=== PATIENT | female | born 1985 | race Caucasian/White ===

== ENCOUNTER → 2017-05-13 | Outpatient (CLI) | payer BC, OTHER ==
[~2017-05-13] MED LIST: ACHD5005 PO; CEPH-507 PO; FERR325T18 PO; FLUO20CA42 PO; IBUP-1773 PO; OMEP20TA7 PO; RANI150T15 PO
--- NOTE | 2017-05-13 16:32 | Diagnostic Imaging Report ---
EXAMINATION: Pelvic ultrasound. INDICATION: Pelvic pain. FINDINGS: There are no prior studies available for comparison. The uterus is nongravid and not enlarged measuring 7.8 x 6.0 x 5.2 cm. The endometrial lining is thickened measuring 16 mm (5 mm or less). This finding is nonspecific. Correlation with the patient's menstrual cycle will be recommended. There is no focal mass involving the uterus to suggest a fibroid. Both ovaries are identified. Each ovary contains a few subcentimeter follicles. There is good blood flow to each ovary and there is no sign of torsion. There is a small amount of nonspecific free fluid in the pelvis. There is no solid pelvic mass or abscess visualized. IMPRESSION: 1. There is a small amount of nonspecific free fluid. There is no acute pelvic abnormality noted otherwise. 2. The endometrial lining is thickened but this finding is nonspecific. Correlation with the patient's menstrual cycle will be recommended. Dictated by: Dictated on workstation # [id number]
== END ==
LOC: RAD 14:19
PROVIDERS: ATTEND Nurse Practitioner Family
DX: E28.2 Polycystic ovarian syndrome (principal); R93.8 Abnormal findings on diagnostic imaging of other specified body structures
CPT/HCPCS: 76830; 76856

== ENCOUNTER → 2018-01-07 | Outpatient (CLI) | payer BC ==
[~2018-01-07] MED LIST changes: -RANI150T15 PO; +RANI150T46 PO
--- NOTE | 2018-01-07 12:03 | Diagnostic Imaging Report ---
INDICATION: anatomical survey assessment. TECHNIQUE: Multiple real-time grayscale images were obtained over the gravid uterus. COMPARISON: None. FINDINGS: There is a single viable intrauterine , currently in a variable presentation. The placenta is along the anterior aspect and without evidence for previa. There is lower limits of amniotic fluid, borderline oligohydramnios with an index at 5.7 cm. The visualized anatomical structures including the bladder, stomach, intracranial structures, four-chamber heart, and three-vessel cord appearing unremarkable. It is noted the kidneys, spine, and cord insertion site however are not well assessed at this time. Biometrical measurements are as follows: Biparietal 4.53 cm, age 19 weeks 5 days. Head circumference 17.46 cm, age 20 weeks 0 days. Abdominal circumference 14.25 cm, age 19 weeks 5 days. Femur length 3.43 cm, age 20 weeks 6 days. Sonographic estimate age: 20 weeks 1 days. Sonographic estimated date of delivery: 05/26/18. Estimated Weight: 334 gm (+/- 49 gm). LMP percentile: 52%. heart rate: 142 beats per minute. number: 1 of 1. Maternal adnexa not visualized. IMPRESSION: 1. Single viable intrauterine , currently in a variable orientation. Sonographic estimated age 20 weeks 1 day for sonographically estimated date of delivery of May 26, 2018. 2. The kidneys, spine, and cord insertion site were unable to be well visualized at this time. 3. There is presence of borderline oligohydramnios with a low amount of amniotic fluid present. 4. Short-term followup imaging is recommended for reassessment. Dictated by: Dictated on workstation # [id number]
== END ==
LOC: RAD 10:02
PROVIDERS: ATTEND Obstetrics & Gynecology
DX: Z36.89 Encounter for other specified antenatal screening (principal); Z3A.20 20 weeks gestation of pregnancy
CPT/HCPCS: 76805

== ENCOUNTER 2018-05-26 02:12 | Inpatient (IN) | payer BC ==
[2018-05-26] VITALS (38 sets, daily range): BP systolic 98–151; BP diastolic 48–88
[~2018-05-26] VITALS: Ht 162.6 cm; Wt 104.0 kg
[2018-05-26] MEDS ORDERED: MINERAL OIL CONCENTRATE 99.9% 15 ML UDC TOP PRN (02:30)
[2018-05-26] MEDS: D5 LR IV SOLUTION 1,000 ML IV SCH ×2 (02:50→10:45)
[2018-05-26 02:55] LABS: BILIRUBIN,URINE NEGATIVE (NEGATIVE); GLUCOSE, URINE (UA) NEGATIVE (NEGATIVE); KETONES,URINE 4+ (NEGATIVE); LEUKOCYTE ESTERASE ,URINE NEGATIVE (NEGATIVE); NITRITE,URINE NEGATIVE (NEGATIVE); PH,URINE 6 (5-9); PROTEIN,URINE NEGATIVE (NEGATIVE); UROBILINOGEN,URINE NORMAL (NORMAL)
[2018-05-26 03:01] LABS: CLARITY,URINE SLIGHTLY CLOUDY; COLOR,URINE YELLOW; RBC,URINE RARE /HPF; WBC,URINE RARE /HPF
[2018-05-26 03:02] LABS: BACTERIA,URINE TRACE /HPF
[2018-05-26 03:05] LABS: BASOPHILS % (AUTO) 0 % (0-10); EOSINOPHILS % (AUTO) 0 % (0-10); HEMATOCRIT 28 % (35-52); LYMPHOCYTES # (AUTO) 2.2 X 10^3 (1.0-4.0); LYMPHOCYTES % (AUTO) 23 % (12-44); MEAN CORPUSCULAR HEMOGLOBIN 27 PG (25-34); MEAN CORPUSCULAR HGB CONC 32 G/DL (32-36); MEAN CORPUSCULAR VOLUME 82 FL (80-99); MEAN PLATELET VOLUME 9.8 FL (7.4-10.4); MONOCYTES # (AUTO) 0.7 X 10^3 (0.0-1.0); MONOCYTES % (AUTO) 8 % (0-12); NEUTROPHILS # (AUTO) 6.5 X 10^3 (1.8-7.8); NEUTROPHILS % (AUTO) 68 % (42-75); PLATELET COUNT 340 10^3/uL (130-400); RED CELL DISTRIBUTION WIDTH 15.2 % (10.0-14.5); WHITE BLOOD COUNT 9.5 10^3/uL (4.3-11.0)
[2018-05-26] MEDS ORDERED: CATHETER FLUSH 10 ML SYR IV SCH ×2 (06:00→14:00)
--- NOTE | 2018-05-26 07:10 | NUR ---
Report rec'd from previous shift. RN reports pt arrived to floor around 0215 c/o ctx.
--- NOTE | 2018-05-26 07:20 | History & Physical-OB ---
OB - Chief Complaint & HPI Date/Time Date of Admission: Date of Admission: May 26, 2018 at 02:33 Date seen by a Provider: May 26, 2018 Time Seen by a Provider: 07:20 Chief Complaint/History OB-Reason for Admission/Chief: Induction of Labor Hx : 2 Hx Para: 1 Expected Date of Delivery: May 27, 2018 Gestational Age in Weeks: 39 Gestational Age in Days: 1 Admission Nurse Assessment Rev: Yes History of Labs A pos Antibody neg RI RPR NR HBsAg NR HIV NR GC neg GBS neg Allergies and Home Medications Allergies Coded Allergies: amoxicillin (Verified Allergy, Mild, rash , 05/08/15) In childhood, has not had since. clavulanic acid (Verified Allergy, Mild, rash , 05/08/15) In childhood, has not had since. Home Medications Cephalexin 500 Mg Capsule, 500 MG PO QID, (Reported) Fluoxetine HCl 20 Mg Capsule, 20 MG PO DAILY, (Reported) Omeprazole 20 Mg Tablet.dr, 20 MG PO BID Prescribed by: REJI LAMBERT on 09/06/15 3093 Patient Home Medication List Home Medication List Reviewed: Yes OB - History Hx of Present Care: Yes Ultrasounds: Normal mid trimester US Obstetrical Complications: None Medical Complications: None Obstetrical History Hx : 2 Hx Para: 1 Hx Total # of Abortions (Spona: 0 Delivery History Hx Blood Disorders: No Adverse Rxn to Tranfusion: No Patient Past Medical History PMHx: PCOS Social History/Family History HIV/AIDS: No Recent Infectious Disease Expo: No Sexually Transmitted Disease: No Alcohol Use: Denies Use Recreational Drug Use: No Immunizations Hepatitis A: No Hepatitis B: Yes Tetanus Booster (TDap): Less than 5yrs OB - Admission Exam Physical Exam Vitals: Vital Signs 05/26/18 03:00 Temp 98.4 Pulse 108 Resp 18 B/P (MAP) 130/76 (94) HEENT: NCAT Heart: Rhythm Normal Lungs: Clear Abdomen: Gravid Extremities: Normal Reflexes: Normal Cervical Dilatation: 4cm Effacement: 75% Station: -1 Membranes: Intact Heart Rate: 130's Accelerations: Accelerations Present Decelerations: No Decelerations Short Term Variability: Present Chinese Medicine Practitioner Variability: Average (6-25) Contractions on Admission: 6-10 Minutes Apart Intensity: Moderate Cormier Scoring Tool (Modified) Dilation (cm): 3-4cm (2) Effacement (%): 51-79% (2) Descent/Station: -1,0 (2) Cervix Consistency: Soft (2) Cervix Position: Middle/Mid-Position (1) Add 1 point for: Each previous vaginal delivery (1) Cormier Score: 10 Labs Laboratory Tests Test 05/26/18 02:35 05/26/18 02:45 Range/Units Urine Color YELLOW Urine Clarity SLIGHTLY CLOUDY Urine pH 6 5-9 Urine Specific [place] 1.015 L 1.016-1.022 Urine Protein NEGATIVE NEGATIVE Urine Glucose (UA) NEGATIVE NEGATIVE Urine Ketones 4+ H NEGATIVE Urine Nitrite NEGATIVE NEGATIVE Urine Bilirubin NEGATIVE NEGATIVE Urine Urobilinogen NORMAL NORMAL MG/DL Urine Leukocyte Esterase NEGATIVE NEGATIVE Urine RBC (Auto) 1+ H NEGATIVE Urine RBC RARE /HPF Urine WBC RARE /HPF Urine Squamous Epithelial Cells 10-25 H /HPF Urine Crystals NONE /LPF Urine Bacteria TRACE /HPF Urine Casts NONE /LPF Urine Mucus SMALL H /LPF Urine Culture Indicated NO White Blood Count 9.5 4.3-11.0 10^3/uL Red Blood Count 3.38 L 4.35-5.85 10^6/uL Hemoglobin 9.0 L 11.5-16.0 G/DL Hematocrit 28 L 35-52 % Mean Corpuscular Volume 82 80-99 FL Mean Corpuscular Hemoglobin 27 25-34 PG Mean Corpuscular Hemoglobin Concent 32 32-36 G/DL Red Cell Distribution Width 15.2 H 10.0-14.5 % Platelet Count 340 130-400 10^3/uL Mean Platelet Volume 9.8 7.4-10.4 FL Neutrophils (%) (Auto) 68 42-75 % Lymphocytes (%) (Auto) 23 12-44 % Monocytes (%) (Auto) 8 0-12 % Eosinophils (%) (Auto) 0 0-10 % Basophils (%) (Auto) 0 0-10 % Neutrophils # (Auto) 6.5 1.8-7.8 X 10^3 Lymphocytes # (Auto) 2.2 1.0-4.0 X 10^3 Monocytes # (Auto) 0.7 0.0-1.0 X 10^3 Eosinophils # (Auto) 0.0 0.0-0.3 10^3/uL Basophils # (Auto) 0.0 0.0-0.1 10^3/uL OB - Assessment/Plan/Diagnosis Assessment Assessment: induction of labor Admission Dx 32 yo @ 39.6 Induction/augmentation of latent early labor GBS neg BMI 39 Admission Status: Inpatient Order (span 2 midnights) Reason for Inpatient Admission: Induction of labor Term Plan Plan: Induction Induction Method: EPI WU DO May 26, 2018 07:19
[2018-05-26] MEDS ORDERED: FLU QUADRIvalent (5+ YOA) 2018-2019 (AFLURIA) 0.5 ML IM ONE (07:30)
[2018-05-26] MEDS ORDERED: OXYTOCIN/NORMAL SALINE 500 ML IV SCH ×2 (09:32→13:52)
[2018-05-26] MEDS ORDERED: SUFENTA 0.6MCG/ML BUPIVA 0.125 100 ML ONE (10:06)
[2018-05-26] MEDS ORDERED: LIDOCAINE PF 2% 5 ML (XYLOCAINE) VIAL ONE (10:25)
[2018-05-26] MEDS ORDERED: fentaNYL INJECTION 100 MCG/2 ML AMP ONE (10:25)
[2018-05-26] MEDS ORDERED: BUPIVACAINE 0.25% 30 ML (SENSORCAINE) VIAL ONE (10:25)
--- NOTE | 2018-05-26 10:27 | NUR ---
Dr. Haas here for epidural placement. Procedure explained, consent reviewed and signed by anesthesia. Questions answered to patient's satisfaction. Time out taken to verify correct patient/procedure. Patient up to side of bed, assisted into sitting position. Betadine prep done x3 and sterile drape applied. Local done, see anesthesia record. Test dose given, see anesthesia record for drug and dosage. Epidural catheter secured in place. Epidural placement complete. Assisted back into bed, monitors adjusted. Epidural dosed, see anesthesia record. Epidural of Sufenta/Bupvicaine @12 cc/hr stated per pump. Patient tolerated procedure well.
[2018-05-26] MEDS ORDERED: LIDOCAINE/EPI 2% 1:200,00 (XYLOCAINE) 10 ML VIAL ONE (12:02)
[2018-05-26] MEDS ORDERED: IBUPROFEN 600 MG (MOTRIN) TAB PO ONE (13:57)
[2018-05-26] MEDS ORDERED: BENZOCAINE/MENTHOL (DERMOPLAST) 56 ML CAN TP PRN (14:00)
[2018-05-26] MEDS ORDERED: WITCH HAZEL(TUCKS) 40 EA JAR TOP PRN (14:00)
[2018-05-26] MEDS: IBUPROFEN 600 MG (MOTRIN) TAB PO SCH ×2 (14:00→20:19)
[2018-05-26] MEDS ORDERED: LACTATED RINGERS 1,000 ML IV ONE (14:14)
[2018-05-26] MEDS ORDERED: ONDANSETRON 4 MG/2 ML (SDV) Z0FRAN IV PRN (14:15)
[2018-05-26] MEDS ORDERED: NALOXONE 0.4 MG/ML 1 ML (NARCAN) VIAL IV PRN (14:15)
[2018-05-26] MEDS ORDERED: diphenhydrAMINE 50 MG/ML INJ (BENADRYL) IV PRN (14:15)
[2018-05-26] MEDS ORDERED: EPIDURAL (SUFENTA 0.6MCG/ML BUPIVA 0.125%) 100 ML BAG EPI SCH (14:15)
[2018-05-26] MEDS ORDERED: CATHETER FLUSH 10 ML SYR IV PRN (14:15)
--- NOTE | 2018-05-26 15:00 | NUR ---
Pt assisted to standing position, ambulates to bathroom without difficulty. +void. Pericare performed. Fresh vpad and underwear applied. New gown on. Pt assisted to wheelchair. Taken to room 312 via wheelchair. Pt and oriented to room and call light. packet explained. Pt questions answered to pt satisfaction. Denies further needs at this time.
--- NOTE | 2018-05-26 16:46 | OB Labor & Delivery Record ---
L&D History Date of Service Date of Service: May 26, 2018 History Expected Date of Delivery: May 27, 2018 Gestational Age in Weeks: 39 Hx : 2 Hx Para: 1 Complications Events: Routine care Operative Indications (Cesarea: N/A-Vaginal Delivery Intrapartal Events: None L&D Stage1 Stage One Onset of Labor - Date: May 26, 2018 Monitors and Tracing Monitor Mode: None Heart Rate: 130 Monitor Accelerations: Uniform Monitor Decelerations: Early Station: -2 Alf Variability: Average (6-10) Short Term Variability: Present Presentation: Vertex Vital Signs VS - Last 72 Hours, by Label 05/26/18 05/26/18 05/26/18 05/26/18 03:00 07:20 08:20 08:50 Temp 98.4 97.5 97.9 Pulse 108 102 88 96 Resp 18 18 18 18 B/P (MAP) 130/76 (94) 125/75 (92) 120/72 (88) 132/70 (90) 05/26/18 05/26/18 05/26/18 05/26/18 09:20 09:50 10:20 10:35 Pulse 86 93 105 101 Resp 18 18 18 18 B/P (MAP) 133/67 (89) 124/64 (84) 125/85 (98) 122/64 (83) Pulse Ox 100 05/26/18 05/26/18 05/26/18 05/26/18 10:45 10:49 10:53 10:56 Temp 97.5 Pulse 101 103 95 102 Resp 18 18 18 18 B/P (MAP) 151/88 (109) 117/56 (76) 124/65 (84) 110/63 (79) Pulse Ox 99 100 99 96 05/26/18 05/26/18 05/26/18 05/26/18 10:59 11:05 11:08 11:11 Pulse 101 99 90 91 Resp 18 18 18 18 B/P (MAP) 115/60 (78) 120/62 (81) 121/66 (84) 113/66 (82) Pulse Ox 100 99 99 100 05/26/18 05/26/18 05/26/18 05/26/18 11:14 11:20 11:23 11:26 Pulse 93 84 103 78 Resp 18 18 18 18 B/P (MAP) 111/61 (78) 114/59 (77) 106/55 (72) 112/59 (76) Pulse Ox 100 100 100 100 05/26/18 05/26/18 05/26/18 05/26/18 11:29 11:32 11:37 11:42 Pulse 85 94 91 92 Resp 18 18 18 18 B/P (MAP) 124/73 (90) 124/68 (86) 137/83 (101) 136/74 (94) Pulse Ox 100 05/26/18 05/26/18 05/26/18 05/26/18 11:47 11:52 12:35 12:38 Pulse 89 84 100 112 Resp 18 18 18 18 B/P (MAP) 134/69 (90) 131/70 (90) 123/66 (85) 118/64 (82) 05/26/18 05/26/18 05/26/18 05/26/18 12:53 13:08 13:23 13:38 Pulse 100 102 106 100 Resp 18 18 18 18 B/P (MAP) 121/57 (78) 120/60 (80) 123/66 (85) 124/64 (84) 05/26/18 05/26/18 05/26/18 05/26/18 13:53 14:08 14:23 14:38 Temp 98.9 Pulse 101 100 100 109 Resp 18 18 18 18 B/P (MAP) 118/60 (79) 118/62 (80) 114/57 (76) 113/65 (81) Rupture of Membranes Spontaneous Ruture of Membrane: No Amniotic Membrane Rupture Time: 0725 Amniotic Membrane Fluid Desc.: Clear Vaginal Bleeding Description: Normal Show (AROM and Pitocin started, patient progressed to complete and +2 with low dose 4mu pitocin.) Induction/Anesthesia Epidural Cath Placement - Time: 1043 L&D Stage2 Stage Two Stage II Date: May 26, 2018 Monitors and Tracing Monitor Mode: None Heart Rate: 130 Monitor Accelerations: Uniform Monitor Decelerations: Variable [employer] Shop Supervisor Variability: Average (6-10) Short Term Variability: Present Position: Right Occiput Anterior Presentation: Vertex Cord Descript/Complications Cord Vessel Description: 3 Vessels Delivery Type Infant Delivery Method: Spontaneous Vaginal Anterior Shoulder: Right Episiotomy/Perineal Laceration [place](s)/Extensions: Yes Episiotomy Description: Midline (midline 1st degree repaired using 3-0 rapide vicryl suture) Condition of Infant Delivery 1 minute Comment: 8 5 minute Comment: 9 Notes Live female weight 7lbs 11 oz Condition of Infant Condition of : Living Exam: No Observed Abnormalities Resuscitation Resuscitation: N/A - Spontaneous Resp L&D Stage3 Stage Three Stage III Date: May 26, 2018 Pictocin Pitocin Administration Comment: 30 mu wide open at delivery of placenta Placenta Delivery Placenta Delivery: Spontaneous Delivery Summary Summary Estimated blood loss (mL): 300 Attending at delivery: Epi James DO Condition of Delivery Examined: Cervix Examined, Uterus Explored Post Hemorrhage: No Condition of Mother stable Condition of Infant (s) stable EPI JAMES DO May 26, 2018 16:46
[2018-05-26] MEDS: HYDROcodone/APAP 5 MG/325 MG (LORTAB) TAB PO PRN ×2 (17:48→23:35)
[2018-05-26] MEDS: DOCUSATE SODIUM 100 MG (COLACE) CAP PO SCH (20:19)
[2018-05-27] MEDS: IBUPROFEN 600 MG (MOTRIN) TAB PO SCH ×3 (02:40→14:59)
[2018-05-27 02:44] VITALS: BP 141/82
[2018-05-27 05:51] VITALS: BP 124/66
[2018-05-27 05:59] LABS: BASOPHILS % (AUTO) 0 % (0-10); EOSINOPHILS # (AUTO) 0.1 10^3/uL (0.0-0.3); EOSINOPHILS % (AUTO) 1 % (0-10); HEMATOCRIT 26 % (35-52); HEMOGLOBIN 8.2 G/DL (11.5-16.0); LYMPHOCYTES # (AUTO) 2.4 X 10^3 (1.0-4.0); LYMPHOCYTES % (AUTO) 20 % (12-44); MEAN CORPUSCULAR HEMOGLOBIN 27 PG (25-34); MEAN CORPUSCULAR HGB CONC 32 G/DL (32-36); MEAN CORPUSCULAR VOLUME 84 FL (80-99); MEAN PLATELET VOLUME 10.9 FL (7.4-10.4); MONOCYTES # (AUTO) 1.1 X 10^3 (0.0-1.0); MONOCYTES % (AUTO) 9 % (0-12); NEUTROPHILS # (AUTO) 8.5 X 10^3 (1.8-7.8); NEUTROPHILS % (AUTO) 70 % (42-75); PLATELET COUNT 263 10^3/uL (130-400); RED CELL DISTRIBUTION WIDTH 15.6 % (10.0-14.5); WHITE BLOOD COUNT 12.1 10^3/uL (4.3-11.0)
[2018-05-27] MEDS ORDERED: FERROUS SULF 325 MG (IRON) TAB PO SCH (07:00)
[2018-05-27] MEDS ORDERED: PRENATAL VITAMIN 1 EA TAB PO SCH (07:00)
[2018-05-27 08:27] VITALS: BP 112/62
[2018-05-27] MEDS: DOCUSATE SODIUM 100 MG (COLACE) CAP PO SCH (08:28)
--- NOTE | 2018-05-27 09:30 | NUR ---
Dr Cash here to see pt, plan for D/C this afternoon.
--- NOTE | 2018-05-27 09:37 | Postpartum Progress Note ---
Note Note Day # 1 Subjective: Patient is without complaints. Ambulating, voiding. Tolerating a regular diet without nausea or vomiting. Normal lochia. Pain is well controlled with oral pain medications. Objective: Physical Exam: General - Alert and oriented, no apparent distress Abdomen - Soft, appropriately tender to palpation, non-distended, fundus firm at umbilicus Extremities - no edema, negative Beti's bilaterally Assessment: PPD 1 NVD Acute blood loss anemia superimposed on anemia of Plan: Routine care. Encourage breast feeding. Encourage ambulation. Ferrous sulfate supplementation. Plan for discharge today Vitals - Labs Vital Signs - I&O Vital Signs Date Time Temp Pulse Resp B/P (MAP) Pulse Ox O2 Delivery O2 Flow Rate FiO2 05/27/18 08:27 102 16 112/62 (79) 98 Room Air 05/27/18 05:51 97.9 95 20 124/66 (85) 96 Room Air 05/27/18 02:44 97.2 82 18 141/82 (101) 97 Room Air 05/26/18 22:21 99.0 98 18 98/48 (65) 97 05/26/18 17:50 98.4 97 18 122/62 (82) 99 Room Air 05/26/18 14:38 109 18 113/65 (81) 05/26/18 14:23 100 18 114/57 (76) 05/26/18 14:08 100 18 118/62 (80) 05/26/18 13:53 98.9 101 18 118/60 (79) 05/26/18 13:38 100 18 124/64 (84) 05/26/18 13:23 106 18 123/66 (85) 05/26/18 13:08 102 18 120/60 (80) 05/26/18 12:53 100 18 121/57 (78) 05/26/18 12:38 112 18 118/64 (82) 05/26/18 12:35 100 18 123/66 (85) 05/26/18 11:52 84 18 131/70 (90) 05/26/18 11:47 89 18 134/69 (90) 05/26/18 11:42 92 18 136/74 (94) 05/26/18 11:37 91 18 137/83 (101) 05/26/18 11:32 94 18 124/68 (86) 05/26/18 11:29 85 18 124/73 (90) 100 05/26/18 11:26 78 18 112/59 (76) 100 05/26/18 11:23 103 18 106/55 (72) 100 05/26/18 11:20 84 18 114/59 (77) 100 05/26/18 11:14 93 18 111/61 (78) 100 05/26/18 11:11 91 18 113/66 (82) 100 05/26/18 11:08 90 18 121/66 (84) 99 05/26/18 11:05 99 18 120/62 (81) 99 05/26/18 10:59 101 18 115/60 (78) 100 05/26/18 10:56 102 18 110/63 (79) 96 05/26/18 10:53 95 18 124/65 (84) 99 05/26/18 10:49 97.5 103 18 117/56 (76) 100 05/26/18 10:45 101 18 151/88 (109) 99 05/26/18 10:35 101 18 122/64 (83) 100 05/26/18 10:20 105 18 125/85 (98) 05/26/18 09:50 93 18 124/64 (84) I & O 05/27/18 07:00 Intake Total 2300 ml Balance 2300 ml Labs Laboratory Tests 05/27/18 05:50: White Blood Count 12.1H, Red Blood Count 3.09L, Hemoglobin 8.2L, Hematocrit 26L , Mean Corpuscular Volume 84, Mean Corpuscular Hemoglobin 27, Mean Corpuscular Hemoglobin Concent 32, Red Cell Distribution Width 15.6H, Platelet Count 263, Mean Platelet Volume 10.9H, Neutrophils (%) (Auto) 70, Lymphocytes (%) (Auto) 20 , Monocytes (%) (Auto) 9, Eosinophils (%) (Auto) 1, Basophils (%) (Auto) 0, Neutrophils # (Auto) 8.5H, Lymphocytes # (Auto) 2.4, Monocytes # (Auto) 1.1H, Eosinophils # (Auto) 0.1, Basophils # (Auto) 0.0 EPI JAMES DO May 27, 2018 09:36
--- NOTE | 2018-05-27 09:37 | Discharge Inst-Women's Service ---
Discharge Inst-Women's Serv Depart Medication/Instructions New, Converted or Re-Newed RX: RX on Chart Final Diagnosis PPD 1 NVD Consults/Follow Up Additional Follow Up: Yes Orders/Referrals Dr. James in 6 weeks Activity Activity: Activity as Tolerated Driving Instructions: No Driving for 1 Week NO SMOKING: NO SMOKING Nothing Inside Vagina: No Douching, No Stuart, No Tampons Diet Discharge Diet: No Restrictions Symptoms to Report to : Bleeding Excessive, Pain Increased, Fever Over 101 Degrees F, Vaginal Bleeding Increase, Questions/Concerns For Any Problems or Questions: Contact Your Physician EPI JAMES DO May 27, 2018 09:37
[2018-05-27] MEDS ORDERED: FERR325T18 PO (09:39)
[2018-05-27] MEDS ORDERED: IBUP-844 PO (09:39)
[2018-05-27] MEDS ORDERED: Benzocaine/Menthol TP (09:39)
[2018-05-27] MEDS ORDERED: ACHD5005 PO (09:39)
[2018-05-27] MEDS ORDERED: DOCU100C37 PO (09:39)
--- NOTE | 2018-05-27 10:11 | Anesthesia-Regional Post-Op ---
Regional Patient Condition Mental Status: Alert, Oriented x3 Circulation: Same as Pre-Op Headache: Absent Sensation: Full Recovery Motor Block: Absent Post Op Complications Complications None Follow Up Care/Instructions Patient Instructions None needed. Anesthesia/Patient Condition Patient is doing well, no complaints, stable vital signs, no apparent adverse anesthesia problems. No complications reported per nursing. BORIS MASTERS CRNA May 27, 2018 10:11
--- NOTE | 2018-05-27 10:30 | NUR ---
To room to check on pt. Pt emotional d/t status in ns. Pt frustrated that she was unaware of situation and that nsy RN didn't introduce herself first thing this AM. Pt concerned that hasn't eaten in 5-6 hours and wanting to breastfeed. Spoke with pt at length and apologized for frustration. Pt feeling better at this time. This RN accompanied pt to [facility] to see and feed infant.
[2018-05-27 12:07] VITALS: BP 123/74
--- NOTE | 2018-05-27 14:20 | NUR ---
TO ROOM TO GIVE MOTRIN, PRESCRIPTIONS TO PT. PT IN NSY TO SEE AT THIS TIME. PRESCRIPTIONS GIVEN TO S.O. TO FILL. ASKED S.O. TO CALL RN WHEN PT BACK IN ROOM.
--- NOTE | 2018-05-27 17:25 | NUR ---
Discharge instructions explained to pt with copy provided to pt. Pt notified of need to call for follow up appt. Pt verbalizes understanding of instructions and signs to verify. Pt denies further questions or concerns at this time. Pt educated on boarder parent status. Pt to remain in room 312 as boarder mom.
== END 2018-05-27 17:25 | disposition home or self-care (01) | DRG 806 ==
LOC: WSo 02:12 → LDRP 02:12 → WSo 02:33 → LDRP 15:00
PROVIDERS: ADMIT Obstetrics & Gynecology; ATTEND Obstetrics & Gynecology
PROC: 10E0XZZ Delivery of Products of Conception, External Approach (ICD-10-PCS; principal; 2018-05-26)
PROC: 0W8NXZZ Division of Female Perineum, External Approach (ICD-10-PCS; 2018-05-26)
PROC: 0HQ9XZZ Repair Perineum Skin, External Approach (ICD-10-PCS; 2018-05-26)
DX: O99.02 Anemia complicating childbirth (principal); O90.81 Anemia of the puerperium; D62 Acute posthemorrhagic anemia; O70.0 First degree perineal laceration during delivery; Z37.0 Single live birth; Z3A.39 39 weeks gestation of pregnancy
CPT/HCPCS: 36415; 81000; 85025; 86850; 86900; 86901; 99212

== ENCOUNTER → 2018-10-28 | Outpatient (CLI) | payer BC ==
[~2018-10-28] MED LIST changes: +Benzocaine/Menthol TP; +DOCU100C37 PO; +IBUP-844 PO; +RANI-613 PO; -RANI150T46 PO
--- NOTE | 2018-10-28 09:18 | Diagnostic Imaging Report ---
PROCEDURE: US Gallbladder. TECHNIQUE: Multiple real-time grayscale images were obtained over the right upper quadrant in various projections. INDICATION: Abdominal pain. FINDINGS: The previous gallbladder ultrasound exam performed on 08/09/2015 fail to show any sign of cholelithiasis or of an acute abnormality. On this study, there is still no evidence for cholelithiasis or acute cholecystitis and the common bile duct is not dilated. The liver does not appear to be enlarged. There is no focal mass involving the liver and the biliary tree is not abnormally dilated. Spectral and color flow imaging of the portal vein shows that the vein is patent. The right kidney is unremarkable. The pancreas was not well visualized. IMPRESSION: 1. There is still no evidence for an acute abnormality of the right upper quadrant. 2. If clinical concern regarding an underlying abnormality of the gallbladder persists and further imaging is desired, then a nuclear medicine hepatobiliary scan would be recommended. Dictated by: Dictated on workstation # [id number]
== END ==
LOC: RAD 07:57
PROVIDERS: ATTEND Nurse Practitioner Family
DX: R10.11 Right upper quadrant pain (principal)
CPT/HCPCS: 76705

== ENCOUNTER 2019-08-20 17:10 | Emergency (ER) | payer BC ==
[~2019-08-20] VITALS: Ht 164 cm; Wt 58.0 kg
[2019-08-20] MEDS ORDERED: KETOROLAC 60 MG/2 ML VIAL IM ONE (17:30)
--- NOTE | 2019-08-20 17:32 | ED Lower Extremity ---
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 No previos inj. Hx of PCOS, LMP 4 weeks ago. Hasn't taken anything for pain. No other injuries. Allergies and Home Medications Allergies Coded Allergies: amoxicillin (Verified Allergy, Mild, rash , 05/08/15) In childhood, has not had since. clavulanic acid (Verified Allergy, Mild, rash , 05/08/15) In childhood, has not had since. Home Medications Cephalexin 500 Mg Capsule, 500 MG PO QID, (Reported) Docusate Sodium 100 Mg Capsule, 100 MG PO BID PRN for CONSTIPATION-1ST LINE Prescribed by: EPI JAMES on 05/27/18938 Ferrous Sulfate 325 Mg Tablet, 325 MG PO DAILY@0700 Prescribed by: EPI JAMES on 05/27/18938 Fluoxetine HCl 20 Mg Capsule, 20 MG PO DAILY, (Reported) Hydrocodone Bit/Acetaminophen 1 Tab Tab, 1 TAB PO Q4H PRN for PAIN-MODERATE Prescribed by: EPI JAMES on 05/27/18938 Ibuprofen 600 Mg Tablet, 600 MG PO Q6H Prescribed by: EPI JAMES on 05/27/18938 Omeprazole 20 Mg Tablet.dr, 20 MG PO BID Prescribed by: RJEI LAMBERT on 09/06/15 1545 [Benzocaine/Menthol] 56 ML AEROSOL, 56 ML TP UD PRN for PAIN- SEE INSTRUCTIONS EXTERNAL USE ONLY Prescribed by: EPI JAMES on 05/27/18938 Patient Home Medication List Home Medication List Reviewed: Yes Review of Systems Constitutional: No chills, No diaphoresis EENTM: No ear discharge, No ear pain Respiratory: No cough, No short of breath Cardiovascular: No chest pain, No edema Gastrointestinal: No abdominal pain, No nausea, No vomiting Genitourinary: No discharge, No dysuria Musculoskeletal: see HPI; No back pain; joint pain All Other Systems Reviewed Negative Unless Noted: Yes Past Outwolu-Kxrszw-Nhzvoc Hx Patient Social History Alcohol Use: Denies Use Recreational Drug Use: No Smoking Status: Never a Smoker Recent Foreign Travel: No Contact w/Someone Who Travel: No Immunizations Up To Date Tetanus Booster (TDap): Less than 5yrs PED Vaccines UTD: Yes Seasonal Allergies Seasonal Allergies: No Past Medical History Reproductive Disorders: Yes Female Reproductive Disorders: Polycystic Ovarian Dis Sexually Transmitted Disease: No HIV/AIDS: No Anxiety Adverse Reaction/Blood Tranf: No Family Medical History FH: pancreatic cancer 19 FATHER, , Onset:55 Cancer, Other Conditions/Hx Physical Exam Vital Signs Vital Signs - First Documented 08/20/19 17:20 Temp 37.1 Pulse 100 Resp 20 B/P (MAP) 108/75 (86) Pulse Ox 99 O2 Delivery Room Air Capillary Refill : Height, Weight, BMI Height: 5'4.00" Weight: 229lbs. 4.0oz. 103.076751ew; 39.4 BMI Method:Stated General Appearance: WD/WN, moderate distress (tearful) HEENT: PERRL/EOMI, TMs normal, pharynx normal Neck: non-tender, full range of motion, supple, normal inspection Cardiovascular: normal peripheral pulses, regular rate, rhythm Respiratory: lungs clear, normal breath sounds, no respiratory distress, no accessory muscle use Gastrointestinal: normal bowel sounds, non tender, soft, no organomegaly Hips: bilateral hip non-tender, bilateral hip normal inspection, bilateral hip normal range of motion Legs: bilateral leg non-tender, bilateral leg normal inspection, bilateral leg normal range of motion Knees: bilateral knee non-tender, bilateral knee normal inspection, bilateral knee normal range of motion Ankles: right ankle non-tender, right ankle normal inspection; bilateral ankle normal range of motion; right ankle no evidence of injury; left ankle bone tenderness (Lateral posterior malleolus) Feet: bilateral foot non-tender, bilateral foot normal inspection, bilateral foot normal range of motion, bilateral foot no evidence of injury Neurologic/Tendon: normal sensation, normal motor functions, normal tendon functions, responds to pain, no evidence tendon injury 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, no motor/sensory deficits, alert, normal mood/affect, oriented x 3 Skin: normal color, warm/dry Progress/Results/Core Measures Results/Orders My Orders Orders - ARTEM MEEK Tibia/Fibula, Left, 2 Views (08/20/19 17:23) Ankle, Left, 3 Views (08/20/19 17:23) Ketorolac Injection (Toradol Injection) (08/20/19 17:30) Urine Bedside (08/20/19 17:23) Medications Given in ED Current Medications Medications Dose Ordered Sig/[place] Route Start Time Stop Time Status Last Admin Dose Admin Ketorolac Tromethamine 60 mg ONCE ONCE IM 08/20/19 17:30 08/20/19 17:31 DC 08/20/19 17:20 60 MG Vital Signs/I&O 08/20/19 17:20 Temp 37.1 Pulse 100 Resp 20 B/P (MAP) 108/75 (86) Pulse Ox 99 O2 Delivery Room Air Progress Progress Note #1: Time: 17:33 Progress Note Neg HCG. Toradol for pain. XR left ankle and tib fib. Progress Note #2: Time: 18:05 Progress Note Pain significantly better. Declined script for Opiates. Posterior splint. Cap refill brisk, sensation intact. Good DP pulse after posterior splint placed. Diagnostic Imaging Diagonstic Imaging: Xray Plain Films/CT/US/NM/MRI: ankle (l) Comments closed, comminuted, nondisplaced fracture of the distal fibula. [facility], [place] NAME: MO [facility]ELONGO [facility] REC#: [id number] PT STATUS: REG ER : 1985 PHYSICIAN: ARTEM MEEK MD ADMIT DATE: 08/20/19/ER Draft Date of Exam:08/20/19 ANKLE, LEFT, 3 VIEWS INDICATION: Injury, tripped on dog. EXAMINATION: Left ankle from 08/20/2019. FINDINGS: 3 views of the ankle. Comminuted distal fibular fracture is noted. Alignment is fairly well maintained. There may be mild widening of the medial ankle mortise, but remaining osseous structures appear to be intact. No dislocations. IMPRESSION: 1. Comminuted distal fibular fracture with questionable widening at the ankle mortise. Dictated on workstation # [id number] Dict: 08/20/19 1749 Trans: 08/20/[address] [place] [id number] Interpreted by: EZEQUIEL SARGENT MD Electronically signed by: Reviewed: Reviewed by Me Diagonstic Imaging: Xray Plain Films/CT/US/NM/MRI: leg Comments closed, comminuted, nondisplaced fracture of the distal fibula. NAME: MO [facility]ONTELON[facility] REC#: [id number] PT STATUS: REG ER : 1985 PHYSICIAN: ARTEM MEEK MD ADMIT DATE: 08/20/19/ER Draft Date of Exam:08/20/19 TIBIA/FIBULA, LEFT, 2 VIEWS INDICATION: Trauma, tripped dog. EXAMINATION: Left tibia and fibula dated 08/20/2019. FINDINGS: 4 views of the tibia and fibula. Comminuted distal fibular fracture is noted. The tibia is intact. Proximal tibia and fibula unremarkable. IMPRESSION: 1. Distal fibular fracture. Dictated on workstation # [id number] Dict: 08/20/19 1750 Trans: 08/20/19 1801 [id number] Interpreted by: EZEQUIEL SARGENT MD Electronically signed by: Reviewed: Reviewed by Me Departure Impression Primary Impression: Fall Qualified Codes: W19.XXXA - Unspecified fall, initial encounter Additional Impression: Closed fibular fracture Qualified Codes: S82.832A - Other fracture of upper and lower end of left fibula, initial encounter for closed fracture Disposition: 01 HOME, SELF-CARE Condition: Improved Departure-Patient Inst. Decision time for Depature: 18:09 Referrals: ELLEN SUTTON MD (PCP/Family) Primary Care Physician EPI LEMUS MD Patient Instructions: Fibula Fracture (DC) Add. Discharge Instructions: Wear the splint except to bathe. Call an orthopedist and F/U in 1 week. Rest, Ice, Elevate and keep the elastic bandages on. Loosen bandages and elevate the foot for inc swelling or tingling. All discharge instructions reviewed with patient and/or family. Voiced understanding. Work/School Note: Work Release Form Date Seen in the Emergency Department: Aug 20, 2019 Return to Work: Aug 21, 2019 Restrictions: Need Release from Doctor Other Restrictions Listed Below: Non weight bearing. Use Crutches. Copy Copies To 1: EPI LEMUS MD, TITUS J Aug 20, 2019 17:32
--- OUTSIDE RECORDS SUMMARY | 2019-08-20 17:37 | XMS REPORT | Clinical Summary ---
Author Author [facility] Organization [facility] Address Unknown Phone Unavailable Care Team Providers Care Terrazzo Roller Name Role Phone Matthew Cash DO PCP Source Comments Some departments are not documenting in the electronic medical record. If you d o not see the information that you expected, contact Release of Information in [facility] [employer] Information Management department at [phone] for further assistan ce in locating additional records.[facility] Allergies Not on File Medications Not on file Active Problems Not on file Social History Date Tobacco Use Types Packs/Day Years Used Never Assessed Sex Assigned at Date Recorded Not on file Industry Job Start Date Occupation Not on file Not on file Not on file Travel End Travel History Travel Start No recent travel history available. Last Filed Vital Signs Not on file Plan of Treatment Health Maintenance Due Date Last Done Comments HIV SCREENING 2001 DTAP/TDAP VACCINES (1 - 2004 Tdap) HEPATITIS C SCREENING 2004 PHYSICAL (COMPREHENSIVE) 2004 EXAM CERVICAL CANCER SCREENING 07/27/2007 INFLUENZA VACCINE 11/30/2019 Results Not on filefrom Last 3 Months Insurance Type Payer Benefit Subscriber ID Effective Phone Address Plan / Dates Group PPO [employer] xxxxxxxxxxxx [id number] BLUE OUT resent OF STATE Advance Directives Patient District Court Justice Explanation Type Date Recorded Advance Directive/DPOA
--- OUTSIDE RECORDS SUMMARY | 2019-08-20 17:38 | XMS REPORT | CCD ---
Author Author Mervin Munroe Organization Lina Berkowitz MD, [facility] Address [address] [place] [address] Phone Care Team Providers Care Employee Representative Name Role Phone PP Unavailable CCM Unavailable Summary Purpose Interface Exchange Insurance Providers Payer name Policy type / Coverage type Covered democrat ID Effective Begin Date Effective End Date [facility] Insurance [id number] Un known Family history Mother Diagnosis Age At Onset Osteoporosis Unknown Arthritis Unknown Father Diagnosis Age At Onset Cancer Unknown Alcoholism Unknown Social History Social History Element Codes Description Effective Dates Marital status Unknown M james clinton 10/29/2016 Number of children Unknown 1 10/29/2016 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 10/29/[address]: 566256332 Never smoker 10/29/2016 Alcohol history Unknown occasionally drinks alcohol 10/29/2016 Allergies, Adverse Reactions, Alerts Substance Reaction Codes Entered Date Inactivated Date Status AUGMENTIN RxNorm: 490084 10/29/2016 No Inactive Date Active Past Medical History Illness Codes Condition Status Onset Date Resolved Date Anemia, unspecified ICD- 9: 285.9 ICD-10: D64.9 Active 10/20/2018 Unknown Gastro-esophageal re flux disease without esophagitis ICD-9: 530.81 ICD-10: K21.9 Active 10/29/2016 Unknown Impaired fasting glu cose ICD-9: 790.21 ICD-10: R73.01 Active 10/18/2018 Unknown Right upper quadrant pain ICD-9: 789.01 ICD-10: R10.11 Active 10/18/2018 Unknown Pelvic and perineal pain ICD-9: 625.9 ICD-10: R10.2 Active 05/10/2017 Unknown Polycystic ovarian s yndrome ICD-9: 256.4 ICD-10: E28.2 Active 10/29/2016 Unknown Palpitations ICD-9: 785.1 ICD-10: R00.2 Active 10/29/2016 Unknown Problems Condition Codes Effectiv e Dates Condition Status Anemia, unspecified ICD- 9: 285.9 ICD-10: D64.9 10/20/2018 Active Gastro-esophageal re flux disease without esophagitis ICD-9: 530.81 ICD-10: K21.9 10/29/2016 Active Impaired fasting glu cose ICD-9: 790.21 ICD-10: R73.01 10/18/2018 Active Right upper quadrant pain ICD-9: 789.01 ICD-10: R10.11 10/18/2018 Active Pelvic and perineal pain ICD-9: 625.9 ICD-10: R10.2 05/10/2017 Active Polycystic ovarian s yndrome ICD-9: 256.4 ICD-10: E28.2 10/29/2016 Active Palpitations ICD-9: 785.1 ICD-10: R00.2 10/29/2016 Active Medications Medication Codes Instruc tions Start Date Stop Date Sta tus Fill Instructions vit #[id number] [id number] oral RxNorm: oral No Start Date Active omeprazole 20 mg cap megan,delayed release RxNorm: 378417 1 Capsule(s) PO daily No Start Date 05/09/2017 Inactive metformin 500 mg tablet RxNorm: 203212 1 Tablet(s) PO BID No Start Date 05/09/2017 Inactive Medication Administered No Medication Administered data Immunizations No Immunization data Assessments Condition Codes Effectiv e Dates Anemia, unspecified ICD-10: D64.9 ICD-9: 285.9 10/20/2018 Right upper quadrant pain ICD-10: R1 0.11 ICD-9: 789.01 10/18/2018 Impaired fasting glucose ICD-10: R73 .01 ICD-9: 790.21 10/18/2018 Pelvic and perineal pain ICD-10: R10 .2 ICD-9: 625.9 05/10/2017 Polycystic ovarian syndrome ICD-10: E28.2 ICD-9: 256.4 05/10/2017 Palpitations ICD-10: R00.2 ICD-9: 785.1 10/29/2016 Gastro-esophageal reflux disease without esophagitis ICD-10: K21.9 ICD-9: 530.81 10/29/2016 Reason For Visit Reason For Visit Effective Dates Notes abdominal pain 10/18/2018 abdominal pain 05/10/2017 palpitations 10/29/2016 Results Observation Observation Code Item Item Code Result Date %Hba1C Qxv598 % HbA1c 99233-7 5.9 % 10/19/2018 %Hba1C Khq589 Gluc Ave 123 mg/dL 10/19/2018 Comp Metabolic Mkh798 NA 140 mEq/L 10/18/2018 Comp Metabolic Wkb128 K 4.3 mEq/L 10/18/2018 Comp Metabolic Yib489 CL 105 mEq/L 10/18/2018 Comp Metabolic Nnn722 CO2 29.0 mEq/L 10/18/2018 Comp Metabolic Iwt258 AN ION GAP 10 10/18/2018 Comp Metabolic Uup098 GL UCOSE 89 mg/dL 10/18/2018 Comp Metabolic Mzr479 Cr eat 0.9 mg/dL 10/18/2018 Comp Metabolic Ixr898 eG FR 78 ml/min/1.73m2 10/18 Comp Metabolic Zal812 BUN 13 mg/dL 10/18/2018 Comp Metabolic Ish791 B/ C Ratio 14.6 Ratio 10/18/2018 Comp Metabolic Avx192 CA LCIUM 9.2 mg/dL 10/18/2018 Comp Metabolic Wbo999 AL K PHOS 64 U/L 10/18/2018 Comp Metabolic Fff593 T(SGOT) 15 U/L 10/18/2018 Comp Metabolic Lfd241 AL T(SGPT) 18 U/L 10/18/2018 Comp Metabolic Lcv712 BI LI T 0.2 mg/dL 10/18/2018 Comp Metabolic Vll568 AL BUMIN 4.2 g/dL 10/18/2018 Comp Metabolic Cyn444 TP RO 6.6 g/dL 10/18/2018 Comp Metabolic Hky349 GL OB 2.4 g/dL 10/18/2018 Comp Metabolic Hue812 A/ G Ratio 1.7 Ratio 10/18/2018 Comp Metabolic Top059 Os mo 279 mOsmo 10/18/2018 Tsh Ord6 TSH (3rd IS) 1.52 uIU/mL 10/18/2018 Cbc With Differential Ord2 WBC 5.64 K/ul 10/18/2018 Cbc With Differential Ord2 RBC 4.39 M/ul 10/18/2018 Cbc With Differential Ord2 HGB 11.4 g/dl 10/18/2018 Cbc With Differential Ord2 HCT 36.6 % 10/18/2018 Cbc With Differential Ord2 Neut% 58.5 % 10/18/2018 Cbc With Differential Ord2 MCV 83.4 fl 10/18/2018 Cbc With Differential Ord2 Lymph% 27.7 % 10/18/2018 Cbc With Differential Ord2 MCH 26.0 pg 10/18/2018 Cbc With Differential Ord2 [place]% 12.4 % 10/18/2018 Cbc With Differential Ord2 MCHC 31.1 pg 10/18/2018 Cbc With Differential Ord2 Eos% 1.2 % 10/18/2018 Cbc With Differential Ord2 PLT 333 K/ul 10/18/2018 Cbc With Differential Ord2 Baso% 0.2 % 10/18/2018 Cbc With Differential Ord2 RDW 15.6 % 10/18/2018 Cbc With Differential Ord2 Neut ABS# 3.30 K/ul 10/18/2018 Cbc With Differential Ord2 Lymph ABS# 1.56 K/ul 10/18/2018 Cbc With Differential Ord2 [place] ABS# 0.7 K/ul 10/18/2018 Cbc With Differential Ord2 Eos ABS# 0.1 K/ul 10/18/2018 Cbc With Differential Ord2 Baso ABS# 0.0 K/ul 10/18/2018 Lipid Ord30 CHOL 171 mg/dL 10/18/2018 Lipid Ord30 HDL 70.0 mg/dl 10/18/2018 Lipid Ord30 TRIG 62 mg/dL 10/18/2018 Lipid Ord30 LDL 89 mg/dL 10/18/2018 Lipid Ord30 C/HDL 2.4 Ratio 10/18/2018 Comp Metabolic Hrv736 NA 137 mEq/L 05/10/2017 Comp Metabolic Hgc720 K 4.0 mEq/L 05/10/2017 Comp Metabolic Kux391 CL 103 mEq/L 05/10/2017 Comp Metabolic Aoj929 CO2 26.0 mEq/L 05/10/2017 Comp Metabolic Dbu955 AN ION GAP 12 05/10/2017 Comp Metabolic Uzj186 GL UCOSE 92 mg/dL 05/10/2017 Comp Metabolic Uot130 Cr eat 0.9 mg/dL 05/10/2017 Comp Metabolic Bgo222 eG FR 82 ml/min/1.73m2 05/10 Comp Metabolic Gfo643 BUN 19 mg/dL 05/10/2017 Comp Metabolic Jht281 B/ C Ratio 22.1 Ratio 05/10/2017 Comp Metabolic Rxw085 CA LCIUM 9.2 mg/dL 05/10/2017 Comp Metabolic Csd637 AL K PHOS 80 U/L 05/10/2017 Comp Metabolic Ggh811 T(SGOT) 19 U/L 05/10/2017 Comp Metabolic Cps818 AL T(SGPT) 21 U/L 05/10/2017 Comp Metabolic Ejb591 BI LI T 0.2 mg/dL 05/10/2017 Comp Metabolic Hmt724 AL BUMIN 4.4 g/dL 05/10/2017 Comp Metabolic Tph308 TP RO 6.8 g/dL 05/10/2017 Comp Metabolic Wax557 GL OB 2.5 g/dL 05/10/2017 Comp Metabolic Tbl648 A/ G Ratio 1.8 Ratio 05/10/2017 Comp Metabolic Ntt237 Os mo 276 mOsmo 05/10/2017 Cbc With Differential Ord2 WBC 6.62 K/ul 05/10/2017 Cbc With Differential Ord2 RBC 4.52 M/ul 05/10/2017 Cbc With Differential Ord2 HGB 12.2 g/dl 05/10/2017 Cbc With Differential Ord2 HCT 37.7 % 05/10/2017 Cbc With Differential Ord2 Neut% 62.6 % 05/10/2017 Cbc With Differential Ord2 MCV 83.4 fl 05/10/2017 Cbc With Differential Ord2 Lymph% 25.7 % 05/10/2017 Cbc With Differential Ord2 MCH 27.0 pg 05/10/2017 Cbc With Differential Ord2 [place]% 10.6 % 05/10/2017 Cbc With Differential Ord2 MCHC 32.4 pg 05/10/2017 Cbc With Differential Ord2 Eos% 0.8 % 05/10/2017 Cbc With Differential Ord2 PLT 295 K/ul 05/10/2017 Cbc With Differential Ord2 Baso% 0.3 % 05/10/2017 Cbc With Differential Ord2 RDW 15.4 % 05/10/2017 Cbc With Differential Ord2 Neut ABS# 4.15 K/ul 05/10/2017 Cbc With Differential Ord2 Lymph ABS# 1.70 K/ul 05/10/2017 Cbc With Differential Ord2 [place] ABS# 0.7 K/ul 05/10/2017 Cbc With Differential Ord2 Eos ABS# 0.1 K/ul 05/10/2017 Cbc With Differential Ord2 Baso ABS# 0.0 K/ul 05/10/2017 Lipid Ord30 CHOL 219 mg/dL 05/10/2017 Lipid Ord30 HDL 78.0 mg/dl 05/10/2017 Lipid Ord30 TRIG 61 mg/dL 05/10/2017 Lipid Ord30 LDL 129 mg/dL 05/10/2017 Lipid Ord30 C/HDL 2.8 Ratio 05/10/2017 Tsh Ord6 TSH (3rd IS) 2.17 uIU/mL 05/10/2017 %Hba1C Com280 % HbA1c 04204-7 5.8 % 05/10/2017 %Hba1C Xse433 Gluc Ave 120 mg/dL 05/10/2017 Review of Systems System Result Effective Dates Constitutional recent illness 10/18/2018 Constitutional No anorexia 10/18/2018 Constitutional No night sweats 10/18/2018 Constitutional No chills 10/18/2018 Constitutional No fatigue 10/18/2018 Constitutional No diaphoresis 10/18/2018 Constitutional No fever 10/18/2018 Constitutional No insomnia 10/18/2018 Constitutional No malaise 10/18/2018 Constitutional weight loss 10/18/2018 Eyes No eye discharge Eyes No eye erythema Ears/Nose/Throat/Neck No dizziness 10/18/2018 Ears/Nose/Throat/Neck No headache 10/18/2018 Cardiovascular No chest pain/pressure 10/18/2018 Respiratory No cough Gastrointestinal abdominal pain 10/18/2018 Gastrointestinal No constipation 10/18/2018 Gastrointestinal diarrhea 10/18/2018 Gastrointestinal nausea 10/18/2018 Gastrointestinal vomiting 10/18/2018 Genitourinary/Nephrology No dysuria 10/18/2018 Musculoskeletal No joint complaint 10/18/2018 Dermatologic No rash Neurologic No alteration of consciousness 10/18/2018 Genitourinary/Nephrology No dysuria 05/10/2017 Genitourinary/Nephrology No menstrua l irregularity 05/10/2017 Genitourinary/Nephrology No Pap smea r abnormality 05/10/2017 Genitourinary/Nephrology pelvic pain 05/10/2017 Genitourinary/Nephrology No vaginal discharge 05/10/2017 Genitourinary/Nephrology No urinary retention/hesitancy 05/10/2017 Gastrointestinal No abdominal pain 05/10/2017 Gastrointestinal constipation 05/10/2017 Gastrointestinal No diarrhea 05/10/2017 Constitutional No recent illness 05/10/2017 Constitutional No anorexia 05/10/2017 Constitutional No night sweats 05/10/2017 Constitutional No chills 05/10/2017 Constitutional No diaphoresis 05/10/2017 Constitutional No fatigue 05/10/2017 Constitutional No fever 05/10/2017 Constitutional No insomnia 05/10/2017 Constitutional No malaise 05/10/2017 Eyes No eye discharge Eyes No eye erythema 01/2018 Ears/Nose/Throat/Neck No dizziness 05/10/2017 Ears/Nose/Throat/Neck No headache 05/10/2017 Cardiovascular No chest pain/pressure 05/10/2017 Respiratory No cough 01/2018 Musculoskeletal No joint complaint 05/10/2017 Dermatologic No rash 01/2018 Neurologic No alteration of consciousness 05/10/2017 Constitutional No recent illness 10/29/2016 Constitutional No night sweats 10/29/2016 Constitutional No anorexia 10/29/2016 Constitutional No chills 10/29/2016 Constitutional No diaphoresis 10/29/2016 Constitutional No fatigue 10/29/2016 Constitutional No fever 10/29/2016 Constitutional No insomnia 10/29/2016 Constitutional No malaise 10/29/2016 Constitutional No weight loss 10/29/2016 Constitutional weight gain 10/29/2016 Eyes No eye discharge Eyes No eye erythema Ears/Nose/Throat/Neck No headache 10/29/2016 Ears/Nose/Throat/Neck No dizziness 10/29/2016 Ears/Nose/Throat/Neck nasal allergies 10/29/2016 Cardiovascular No chest pain/pressure 10/29/2016 Cardiovascular No dyspnea 10/29/2016 Cardiovascular palpitations 10/29/2016 Respiratory No cough Respiratory No productive sputum 10/29/2016 Gastrointestinal No constipation 10/29/2016 Gastrointestinal No diarrhea 10/29/2016 Gastrointestinal gastroesophageal reflux 10/29/2016 Genitourinary/Nephrology No dysuria 10/29/2016 Genitourinary/Nephrology menstrual i rregularity 10/29/2016 Musculoskeletal No joint complaint 10/29/2016 Dermatologic No rash Dermatologic No sores Neurologic No alteration of consciousness 10/29/2016 Psychiatric No anxiety 0 10/29/2016 Psychiatric No depression 10/29/2016 Endocrine No polyuria Endocrine No polydipsia 10/29/2016 Endocrine No hair loss 0 10/29/2016 Hematologic/Lymphatic No abnormal bl eeding and bruising 10/29/2016 Physical Exam Exam Name System Name It em Name Status Result Effective Dates Notes Full Exam - General 1994 Constitutional general appearance Overall: well developed 10/18/2018 None Full Exam - General 1994 Constitutional general appearance Overall: in no acute distress 10/18/2018 None Full Exam - General 1994 Constitutional general appearance Overall: well nourished 10/18/2018 None Full Exam - General 1994 Eyes conjunctiva/eyelids Overall: conjunctiva clear 10/18/2018 None Full Exam - General 1994 Eyes pupils and irises Overall: pupils equal, round, reactive to light and accomodation 10/18/2018 None Full Exam - General 1994 Ears/Nose/Throat otoscopic exam Overall: external auditory canals clear 10/18/2018 None Full Exam - General 1994 Ears/Nose/Throat otoscopic exam Overall: tympanic membranes clear 10/18/2018 None Full Exam - General 1994 Ears/Nose/Throat oral cavity/pharynx/larynx Overall: oral mucosa clear 10/18/2018 None Full Exam - General 1994 Neck thyroid Overall: normal size None Full Exam - General 1994 Respiratory auscultation Overall: breath sounds clear bilaterally 10/18/2018 None Full Exam - General 1994 Respiratory respiratory effort/rhythm Overall: no retractions 10/18/2018 None Full Exam - General 1994 Respiratory respiratory effort/rhythm Overall: normal rate 10/18/2018 None Full Exam - General 1994 Cardiovascular extremities Overall: no clubbing 10/18/2018 None Full Exam - General 1994 Cardiovascular auscultation of heart Overall: regular rate 10/18/2018 None Full Exam - General 1994 Cardiovascular auscultation of heart Overall: normal heart sounds 10/18/2018 None Full Exam - General 1994 Cardiovascular auscultation of heart Overall: no murmurs 10/18/2018 None Full Exam - General 1994 Lymphatic neck nodes Overall: anterior cervical chain benign 10/18/2018 None Full Exam - General 1994 Lymphatic neck nodes Overall: posterior cervical chain benign 10/18/2018 None Full Exam - General 1994 Musculoskeletal gait and station Overall: normal gait 10/18/2018 None Full Exam - General 1994 Musculoskeletal gait and station Overall: normal station 10/18/2018 None Full Exam - General 1994 Integument inspection of skin Overall: few scattered moles, no gross abnormalities 10/18/2018 None Full Exam - General 1994 Neurologic cranial nerves Overall: crainial nerves 2 - 12 grossly intact 10/18/2018 None Full Exam - General 1994 Psychiatric orientation/consciousness Overall: oriented to person, place and time 10/18/2018 None Full Exam - Cardiology Abdomen abdominal exam Overall: no tenderness 10/18/2018 None Full Exam - Cardiology Abdomen abdominal exam Overall: normal bowel sounds 10/18/2018 None Full Exam - General 1994 Constitutional general appearance Overall: well developed 05/10/2017 None Full Exam - General 1994 Constitutional general appearance Overall: in no acute distress 05/10/2017 None Full Exam - General 1994 Constitutional general appearance Overall: well nourished 05/10/2017 None Full Exam - General 1994 Eyes conjunctiva/eyelids Overall: conjunctiva clear 05/10/2017 None Full Exam - General 1994 Eyes pupils and irises Overall: pupils equal, round, reactive to light and accomodation 05/10/2017 None Full Exam - General 1994 Ears/Nose/Throat otoscopic exam Overall: external auditory canals clear 05/10/2017 None Full Exam - General 1994 Ears/Nose/Throat otoscopic exam Overall: tympanic membranes clear 05/10/2017 None Full Exam - General 1994 Ears/Nose/Throat oral cavity/pharynx/larynx Overall: oral mucosa clear 05/10/2017 None Full Exam - General 1994 Neck thyroid Overall: normal size 01/2018 None Full Exam - General 1994 Respiratory auscultation Overall: breath sounds clear bilaterally 05/10/2017 None Full Exam - General 1994 Respiratory respiratory effort/rhythm Overall: no retractions 05/10/2017 None Full Exam - General 1994 Respiratory respiratory effort/rhythm Overall: normal rate 05/10/2017 None Full Exam - General 1994 Cardiovascular extremities Overall: no clubbing 05/10/2017 None Full Exam - General 1994 Cardiovascular auscultation of heart Overall: regular rate 05/10/2017 None Full Exam - General 1994 Cardiovascular auscultation of heart Overall: normal heart sounds 05/10/2017 None Full Exam - General 1994 Cardiovascular auscultation of heart Overall: no murmurs 05/10/2017 None Full Exam - General 1994 Abdomen abdominal exam Overall: normal bowel sounds 05/10/2017 None Full Exam - General 1994 Lymphatic neck nodes Overall: anterior cervical chain benign 05/10/2017 None Full Exam - General 1994 Lymphatic neck nodes Overall: posterior cervical chain benign 05/10/2017 None Full Exam - General 1994 Musculoskeletal gait and station Overall: normal gait 05/10/2017 None Full Exam - General 1994 Musculoskeletal gait and station Overall: normal station 05/10/2017 None Full Exam - General 1994 Integument inspection of skin Overall: few scattered moles, no gross abnormalities 05/10/2017 None Full Exam - General 1994 Neurologic cranial nerves Overall: crainial nerves 2 - 12 grossly intact 05/10/2017 None Full Exam - General 1994 Psychiatric orientation/consciousness Overall: oriented to person, place and time 05/10/2017 None Full Exam - General 1994 Abdomen abdominal exam Lower quadrant: tender to palpation 05/10/2017 None Full Exam - General 1994 Constitutional general appearance Overall: well developed 10/29/2016 None Full Exam - General 1994 Constitutional general appearance Overall: in no acute distress 10/29/2016 None Full Exam - General 1994 Constitutional general appearance Overall: well nourished 10/29/2016 None Full Exam - General 1994 Psychiatric orientation/consciousness Overall: oriented to person, place and time 10/29/2016 None Full Exam - General 1994 Neurologic cranial nerves Overall: crainial nerves 2 - 12 grossly intact 10/29/2016 None Full Exam - General 1994 Integument inspection of skin Overall: few scattered moles, no gross abnormalities 10/29/2016 None Full Exam - General 1994 Musculoskeletal gait and station Overall: normal gait 10/29/2016 None Full Exam - General 1994 Musculoskeletal gait and station Overall: normal station 10/29/2016 None Full Exam - General 1994 Lymphatic neck nodes Overall: anterior cervical chain benign 10/29/2016 None Full Exam - General 1994 Lymphatic neck nodes Overall: posterior cervical chain benign 10/29/2016 None Full Exam - General 1994 Abdomen abdominal exam Overall: normal bowel sounds 10/29/2016 None Full Exam - General 1994 Abdomen abdominal exam Overall: no tenderness 10/29/2016 None Full Exam - General 1994 Cardiovascular auscultation of heart Overall: regular rate 10/29/2016 None Full Exam - General 1994 Cardiovascular auscultation of heart Overall: normal heart sounds 10/29/2016 None Full Exam - General 1994 Cardiovascular auscultation of heart Overall: no murmurs 10/29/2016 None Full Exam - General 1994 Cardiovascular extremities Overall: no clubbing 10/29/2016 None Full Exam - General 1994 Respiratory auscultation Overall: breath sounds clear bilaterally 10/29/2016 None Full Exam - General 1994 Respiratory respiratory effort/rhythm Overall: no retractions 10/29/2016 None Full Exam - General 1994 Respiratory respiratory effort/rhythm Overall: normal rate 10/29/2016 None Full Exam - General 1994 Neck thyroid Overall: normal size None Full Exam - General 1994 Ears/Nose/Throat otoscopic exam Overall: external auditory canals clear 10/29/2016 None Full Exam - General 1994 Ears/Nose/Throat otoscopic exam Overall: tympanic membranes clear 10/29/2016 None Full Exam - General 1994 Ears/Nose/Throat oral cavity/pharynx/larynx Overall: oral mucosa clear 10/29/2016 None Full Exam - General 1994 Eyes conjunctiva/eyelids Overall: conjunctiva clear 10/29/2016 None Full Exam - General 1994 Eyes pupils and irises Overall: pupils equal, round, reactive to light and accomodation 10/29/2016 None Procedures No Procedures data Vital Signs Date Vital 10/18/2018 Blood Pressure 1: 154/80 Code: 8480-6 Blood Pressure 1: 112/64 Code: 8480-6 BMI: 36.6 Code: 63292-7 Heart Rate 1: 95 bpm Height: 5'4" SpO2: 98% Weight: 213 lbs 05/10/2017 Blood Pressure 1: 126/74 Code: 8480-6 BMI: 36.6 Code: 96083-4 Heart Rate 1: 86 bpm Height: 5'4" SpO2: 97% Weight: 213 lbs 10/29/2016 Blood Pressure 1: 128/70 Code: 8480-6 BMI: 37.2 Code: 94200-1 Heart Rate 1: 80 bpm Height: 5'4" SpO2: 98% Weight: 217 lbs Functional Status No Functional Status data History of Present Illness Symptom Name Status Resu lt Effective Date Notes Location in the RUQ 10/18/2018 None Quality aching 10/18/2018 None Quality burning 10/18/2018 None Quality cramping 10/18/2018 None Quality sharp 10/18/2018 None Onset of Symptom 4 day s ago 10/18/2018 None Limitation on Activities moderately limits activities 10/18/2018 None Onset and Resolution r esolved 10/18/2018 None Triggers meals 10/18/2018 high fat diet abdominal pain Location in the LLQ 05/10/2017 None abdominal pain Location in the suprapubic area 05/10/2017 None abdominal pain Radiating the inguinal area 05/10/2017 None abdominal pain Quality a rustam 05/10/2017 None abdominal pain Quality i ntermittent 05/10/2017 None abdominal pain Quality w orsening 05/10/2017 None abdominal pain Onset and Resolution sudden in onset 05/10/2017 None abdominal pain Onset and Resolution ongoing 05/10/2017 None abdominal pain Onset of Symptom 2 months ago 05/10/2017 None abdominal pain Limitation on Activities does not limit activities 05/10/2017 None abdominal pain Pertinent Findings Denies abdominal distension 05/10/2017 None abdominal pain Pertinent Findings Denies back pain 05/10/2017 None abdominal pain Triggers no known associated factors 05/10/2017 None palpitations Quality rap id and regular beats 10/29/2016 None palpitations Onset and Resolution sudden in onset 10/29/2016 None palpitations Onset of Symptom 3 weeks ago 10/29/2016 None palpitations Frequency of Episodes daily 10/29/2016 None gastroesophageal reflux Quality constant 10/29/2016 None gastroesophageal reflux Quality regurgitation of acid 10/29/2016 None gastroesophageal reflux Quality regurgitation of food 10/29/2016 None gastroesophageal reflux Onset and Re solution gradual in onset 10/29/2016 None gastroesophageal reflux Onset of Symptom 2 years ago 10/29/2016 None gastroesophageal reflux Frequency of Episodes daily 10/29/2016 None gastroesophageal reflux Frequency of Episodes every meal 10/29/2016 No ne gastroesophageal reflux Frequency of Episodes increasing 10/29/2016 No ne palpitations Quality acu te 10/29/2016 None palpitations Limitation on Activities does not limit activities 10/29/2016 None palpitations Triggers no known associated factors 10/29/2016 None palpitations Pertinent Findings Denies dyspnea 10/29/2016 None palpitations Pertinent Findings Denies tachycardia 10/29/2016 None gastroesophageal reflux Triggers no known associated factors 10/29/2016 None gastroesophageal reflux Pertinent Findings Denies cough 10/29/2016 None Advance Directives No Advance Directive data Encounters Encounter Performer Loca tion Codes Date [id number]) [id number] EST. P ATIENT, LEVEL III Diagnosis: Right upper quadrant pain[ICD10: R10.11] Diagnosis: Impaired fasting glucose[ICD10: R73.01] Cecille Berkowitz MD, [facility] CPT-4: 98451 10/18/2018 [id number]) [id number] EST. P ATIENT, LEVEL III Diagnosis: Pelvic and perineal pain[ICD10: R10.2] Diagnosis: Polycystic ovarian syndrome[ICD10: E28.2] [facility] CPT-4: 32454 05/10/2017 OFFICE VISIT, NEW - LEVEL 4 Diagnosis: Gastro-esophageal reflux disease without esophagitis[ICD10: K21.9] Diagnosis: Polycystic ovarian syndrome[ICD10: E28.2] Diagnosis: Palpitations[ICD10: R00.2] [facility] CPT- 4: 97242 10/29/2016 Plan of Care Planned Activity Notes C odes Status Date Patient Education: Patient Medication Summary Completed 10/20/2018 Care Plan: Iron add to blood from 10/18 Pending 10/20/2018 Care Plan: Ferritin add to blood from 10/18 Pending 10/20/2018 Care Plan: Tibc add to blood from 10/18 Pending 10/20/2018 Visit Plan: RUQ pain -gallbladder u ltrasound -start PPI daily -low fat diet PCOS-elevated blood sugars -check Hgb A1C with labs today 10/18/2018 Appointment: Cecille Munroe WPtel[phone] [place] [facility] min[facility] Complex 10/18/2018 Patient Education: Patient Medication Summary Completed 10/18/2018 Visit Plan: Left lower pelvia pain- history of PCOS-UA negative-will schedule pelvic ultrasound for further evaluation-patient not interested in control as they want to try for a baby within the next year. Instructed patient we will call her with results of the ultrasound 05/10/2017 Appointment: Cecille Munroe WPtel[phone] [place] (30 min) Complex 05/10/2017 Patient Education: Patient Medication Summary Completed 05/10/2017 Visit Plan: Esophageal Reflux - the patient has been counseled against excessive intake of caffeine, spicy foods, peppermint, and cinnamon - all of which can exacerbate esophageal reflux. The patient is to take medications as prescribed and call the office if the symptoms are not improving. PCOS-recently started metformin-monitor symptoms Palpitations-increase omeprazole-if symptoms persist, schedule holter monitor 10/29/2016 Appointment: Cecille Munroe WPtel[phone] [place] New Patient 10/29/2016 Patient Education: Patient Medication Summary Completed 10/29/2016 Patient Education: Obesity Completed 10/29/2016 Instructions Comment INCREASE OMEPRAZOLE TO TWICE DAILY CALL IF PALPITATIONS PERSIST AND WE WILL SET YOU UP WITH A HOLTER MONITOR . Esophageal Reflux - the patient has be en counseled against excessive intake of caffeine, spicy foods, peppermint, and cinnamon - all of which can exacerbate esophageal reflux. The patient is to take medications as prescribed and call the office if the symptoms are not improving. PCOS-recently started metformin-monitor symptoms Palpitations-increase omeprazole-if symptoms persist, schedule holter monitor pelvic ultrasound wednesday any time afternoon wednesday afternoon fastin labs . Left lower pelvia pain-history of PCOS -UA negative-will schedule pelvic ultrasound for further evaluation-patient not interested in control as they want to try for a baby within the next year. Instructed patient we will call her with results of the ultrasound CHECK LABS TODAY GALLBLADDER ULTRASOUND . RUQ pain -gallbladder ultrasound -star t PPI daily -low fat diet PCOS-elevated blood sugars -check Hgb A1C with labs today
--- OUTSIDE RECORDS SUMMARY | 2019-08-20 17:38 | XMS REPORT ---
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 [employer] [facility] Emergency Department [employer] [facility] [employer] Address [address] [address] Care Team Providers Care Certified Legal Secretary Specialist Name Role Phone LAKESHA, JAGDISH Unavailable Unavailable LAKESHA, JAGDISH Unavailable ELLEN BERKOWITZ PCP FENECH DO, EPI S Unavailable Unavailable FENECH DO, EPI S Unavailable Unavailable [facility] PP Unavailable [facility] CCM Unavailable CECILLE CASTILLO AWS ARCHITECT Unavailable Unavailable PCP, OUTSIDE Unavailable Unavailable Unavailable Unavailable Unavailable Unavailable Unavailable Unavailable Unavailable Unavailable Unavailable Unavailable Unavailable Unavailable Allergies Normalized Allergy Reported Date of Reaction(s) Care Provider Facility Allergy Type classification allergen Allergy Onset Drug Allergy Clavulanate Clavulanate 05-08-2015 - clavulanic HO ROCÍOY LESLEY [facility] (1 source.) acid [id number] [facility] ([id number]) [facility] ([id number]) DA (12 Unclassified clavulanic 05-08-2015 - rash JAGDISH E NOCH Not Available sources.) MD ciro ([id number]) Medications Medication Ingredient Drug Dose Dates Status Sig Sig Care Class(es) (Normalized) (Original) Provid er no Benzocaine Standardize 05-28-19 Complete no Benzocain e/M Michae information / Menthol d Chemical 19 d information entho l 56 Ml l S (1 source.) Allergen Aerosol 56 Fenech Ml TOPICAL (no As Directed phone) as needed for Pain- See Instructions 1 Milliliter EXTERNAL USE ONLY 05/27/18 docusate Docusate no 100 mg 05-28-19 Complete take 1 Docusat e Michae sodium 100 information 19 d capsule by Sodium 100 l S mg oral mouth twice Mg Capsule Fenech capsule (1 daily as 100 Mg ORAL (no source.) needed for Twice A Day phone) constipation as needed for Constipation -1ST Line 40 Cap 05/27/18 metFORMIN metFORMIN Biguanide 500 mg 05-10-19 Complete take 1 me tformin Stepha hydrochlori 18 d tablet by 500 mg deandre de 500 mg mouth twice tablet Castillo oral tablet daily RxNorm: Other ([id number] 1 Phone: sources.) Tablet(s) PO 1(620) BID No Start 232-55 Date 81 05/09/2017 Inactive no no no no vit no information vit information informat information #113-iro n-FA name (3 #113-iron-F ion -om3-dha-epa sources.) A-om3-dha-e oral RxNorm: pa oral oral No Start Date Active Problems Active Problems Problem Normalized Date Last Normalized Normalized Provider Fa cility Classification Problem(s) Recorded Problem Problem Sta tus Duration Acute Acute Episodic Active EPI FENECH Not Avai lable posthemorrhagi posthemorrhagi , DO (36629) c anemia (3 c anemia sources.) Other Anemia Chronic Active EPI FENECH Not Avai lable complications complicating , DO (14462) of ; childbirth puerperium affecting management of mother (2 sources.) Deficiency and Anemia, Episodic Active Cecille antonio other anemia unspecified [employer] [facility] (4 sources.) Translations: [id number] (33553) (Work [ Anemia, Phone: unspecified, Anemia, ) unspecified] Diseases of Elevated white Chronic Active JAGDISH Sanchez ot Available white blood blood cell MD (50097) cells (1 count, source.) unspecified Diabetes Impaired Episodic Active Cecille Varghese n mellitus fasting [employer] without glucose [id number] (18782) (Work complication Translations: Phone: (9 sources.) [ Impaired fasting ) glucose, Impaired fasting glucose, Impaired fasting glucose] Other Myalgia Episodic Active REJI Not Available connective PETER , (21597) tissue disease (3 sources.) Abdominal pain Pelvic and no information Active Cecille Berkowitz (9 sources.) perineal pain [facility] Translations: [address] (17857) (Work [ Pelvic and Phone: perineal pain, Pelvic and ) perineal pain, Pelvic and perineal pain, Pelvic and perineal pain] Other Polycystic Chronic Active Cecille galeano endocrine ovarian [facility], [facility] disorders (15 syndrome [id number] (73801) (Work sources.) Translations: Phone: [ Polycystic ovarian ) syndrome, Polycystic ovarian syndrome, Polycystic ovarian syndrome, Polycystic ovarian syndrome] OB-related Second degree Episodic Active EPI FENECH No t Available trauma to perineal , DO (59884) perineum and laceration vulva (3 during sources.) delivery Translations: [ FIRST DEGREE PERINEAL LACERATION DURING ] Past or Other Problems Problem Normalized Date Last Normalized Normalized Provider Fa cility Classification Problem(s) Recorded Problem Problem Sta tus Duration NEGATED 38 weeks no information no information no name no information no gestation of information (4 sources.) Translations: [ 39 WEEKS GESTATION OF , 20 WEEKS GESTATION OF ] Residual 39 weeks no information no information EPI FENECH Not Available codes; gestation of , DO (31998) unclassified (2 sources.) Unclassified Abnormal Episodic Completed CECILLE Not Availa ble (3 sources.) findings on ANNA (08176) diagnostic imaging of other specified body structures Other Diarrhea, Episodic Completed REJI Not Availabl e gastrointestin unspecified BRUEGGEMANN , (01556) al disorders MD (1 source.) Other Diseases of Episodic Completed RONALD NARA , Not A vailable complications the MD (04610) of ; respiratory puerperium system affecting complicating management of the puerperium mother (1 source.) Conditions Dizziness and Episodic Completed REJI Not Zahraa ilable associated giddiness BRUEGGEMANN , (34799) with dizziness MD or vertigo (1 source.) Unclassified Encounter for no information no information BREANAAE L FENECH Not Available (1 source.) other , DO (96512) specified screening Early or False labor at Episodic Completed no name no info rmation threatened or after 37 labor (2 completed sources.) weeks of gestation Lymphadenitis Localized Episodic Completed no name no infor mation (2 sources.) enlarged lymph nodes Other Maternal care Episodic Completed JAGDISH LAKESHA Not Available complications for excessive , (16614) of growth, (3 sources.) third trimester, not applicable or unspecified Nausea and Nausea Episodic Completed no name no informati on vomiting (2 sources.) Polyhydramnios Oligohydramnio Episodic Completed JAGDISH LAKESHA Not Available and other s, birgit , (06262) problems of trimester, not amniotic applicable or cavity (1 unspecified source.) Other Other diseases Episodic Completed JAGDISH LAKESHA Not Available complications of the blood , (91273) of and (1 source.) blood-forming organs and certain disorders involving the immune mechanism complicating , third trimester Other nervous Paresthesia of Episodic Completed REJI Not Available system skin BRUEGGEMANN , (42696) disorders (1 MD source.) Other Pyrexia during Episodic Completed JAGDISH LAKESHA Not Available complications labor, not , (80916) of ; elsewhere puerperium classified affecting management of mother (1 source.) Other lower Shortness of Episodic Completed RONALD BAINS , No t Available respiratory breath (02673) disease (1 source.) Procedures Procedure Normalized Procedure Procedure Result Performer Facility Date DELIVERY OF PRODUCTS no information no name Not Avail able (57975) OF CONCEPTION, EXTE DIVISION OF FEMALE no information no name Not Availab le (48902) PERINEUM, EXTERNAL AP INTRODUCTION OF OTH no information no name Not Availa ble (13065) HORMONE INTO PERIPH REPAIR FEMALE no information no name Not Available ( 55799) PERINEUM, EXTERNAL APPROAC Repair Perineum Skin, no information no name Not Avai lable (42916) External Approach Immunizations Normalized Immunization Date Notes Care Provider Facili ty Immunization NEGATED: Highlighted 05-27-2018 no information ELLEN BERKOWITZ [address] [facility] row has not [facility] occurred! (54906) influenza, injectable,quadrival ent, preservative free, pediatric influenza, seasonal, 11-29-2018 no information no name [facility] injectable [facility] (92333) Results Test Name Value Interpretation Reference Range Date Time Fa cility (Normalized) (Normalized) (Medline Reference) %hba1c on 2018-10-19 Glucose 123 mg/dL (N) 60 - 125 mg/dL 10-19-2018 Ellen william [Mass/Vol] 02:00-0400 , [employer] (19983) (Work Phone: ) HbA1c (Bld) 5.9 % (N) 0 - 5.7 % 10-19-2018 Ellen powelln [Mass fraction] 02:00-0400 [facility] (41429) (Work Phone: ) tsh on 2018-10-18 TSH Qn 1.52 uIU/mL (N) 10-18-2018 Ellen Berkowitz 02:00-0400 [facility] (69012) (Work Phone: ) lipid on 2018-10-18 C/HDL 2.4 Ratio (N) 10-18-2018 Ellen Berkowitz 02:00-0400 [facility] (03866) (Work Phone: ) Cholesterol 171 mg/dL (N) 180 - 200 mg/dL 10-18-2018 Edvin Berkowitz [Mass/Vol] 02:00-0400 [facility] (40630) (Work Phone: ) Cholesterol in 70.0 mg/dL (N) 10-18-2018 Ellen galeano HDL [Mass/Vol] 02:00-0400 [facility] (99108) (Work Phone: ) Cholesterol in 89 mg/dL (N) 0 - 100 mg/dL 10-18-2018 Rome Berkowitz LDL [Mass/Vol] 02:00-0400 [facility] (91394) (Work Phone: ) Triglyceride 62 mg/dL (N) 0 - 150 mg/dL 10-18-2018 Ellen Berkowitz [Mass/Vol] 02:00-0400 [facility] (87808) (Work Phone: ) comp metabolic on 2018-10-18 Albumin 4.2 g/dL (N) 3.4 - 5.4 g/dL 10-18-2018 Ellen william [Mass/Vol] 02:00-0400 [facility] (15101) (Work Phone: ) Albumin/Globulin 1.7 {ratio} (N) 1 - 2.5 {ratio} 9 Ellen Berkowitz [Mass ratio] 02:00-0400 [facility] (68621) (Work Phone: ) ALK PHOS 64 U/L (N) 10-18-2018 Ellen Berkowitz 02:00-399 [facility] (52416) (Work Phone: ) ALT [Catalytic 18 U/L (N) 4 - 40 U/L 10-18-2018 Ellen Berkowitz activity/Vol] 02:00 [facility] (38297) (Work Phone: ) Anion gap 10 mmol/L (N) 3 - 11 mmol/L 10-18-2018 Ellen Childs anston [Moles/Vol] 02:00 [facility] (32274) (Work Phone: ) AST [Catalytic 15 U/L (N) 10 - 34 U/L 10-18-2018 Ellen Berkowitz activity/Vol] 02:00 [facility] (22712) (Work Phone: ) B/C Ratio 14.6 Ratio (N) 10-18-2018 Ellen Berkowitz 02:00-399 [facility] (87815) (Work Phone: ) BILI T 0.2 mg/dL (N) 10-18-2018 Ellen Berkowitz 02:00-399 [facility] (67142) (Work Phone: ) Calcium 9.2 mg/dL (N) 8.5 - 10.2 mg/dL 10-18-2018 Ellen Berkowitz [Mass/Vol] 02:00 [facility] (62127) (Work Phone: ) Chloride 105 mmol/L (N) 95 - 106 mmol/L 10-18-2018 Ellen Berkowitz [Moles/Vol] 02:00-399 [facility] (36518) (Work Phone: ) CO2 [Moles/Vol] 29.0 mmol/L (N) 23 - 29 mmol/L 10-18-2018 Ellen Berkowitz 02:00 [facility] (37614) (Work Phone: ) Creatinine 0.9 mg/dL (N) 10-18-2018 Ellen Berkowitz [Mass/Vol] 02:000 [facility] (11110) (Work Phone: ) GFR/1.73 sq M 78 (N) 90 - 120 10-18-2018 Ellen portilloton predicted among mL/min/{1.73_m2} mL/min/{1.73_m2} 02: [facility] (45254) non-blacks MDRD (Work Phone: (S/P/Bld) [Vol ) rate/Area] Globulin (S) 2.4 g/dL (N) 2 - 3.5 g/dL 10-18-2018 Ellen Berkowitz [Mass/Vol] 02:00 [facility] (69571) (Work Phone: ) Glucose 89 mg/dL (N) 60 - 125 mg/dL 10-18-2018 Ellen william [Mass/Vol] 02:00 [facility] (14851) (Work Phone: ) Osmolality 279 mOsmo (N) 10-18-2018 Ellen Berkowitz [Osmolality] 02:00 [facility] (76047) (Work Phone: ) Potassium 4.3 mmol/L (N) 3.7 - 5.2 mmol/L 10-18-2018 Edvin Berkowitz [Moles/Vol] 02:00 [facility] (82280) (Work Phone: ) Sodium 140 mmol/L (N) 135 - 145 mmol/L 10-18-2018 Edvin Berkowitz [Moles/Vol] 02:00 [facility] (96483) (Work Phone: ) TPRO 6.6 g/dL (N) 10-18-2018 Ellen Berkowitz 02:00 [facility] (96386) (Work Phone: ) Urea nitrogen 13 mg/dL (N) 7 - 20 mg/dL 10-18-2018 Ellen Berkowitz [Mass/Vol] 02:00-399 [facility] (03945) (Work Phone: ) cbc with differential on 2018-10-18 Baso ABS# 0.0 K/ul (N) 10-18-2018 Ellen Berkowitz 02:00-0400 [facility] (07669) (Work Phone: ) Basophils/100 0.2 % (N) 0.5 - 1 % 10-18-2018 Ellen antonio WBC (Bld) 02:00-399 [facility] (61675) (Work Phone: ) Eos ABS# 0.1 K/ul (N) 10-18-2018 Ellen Berkowitz 02:00-399 [facility] (13993) (Work Phone: ) Eosinophils/100 1.2 % (N) 1 - 4 % 10-18-2018 Ellen Berkowitz WBC (Bld) 02:00-399 [facility] (62187) (Work Phone: ) Erythrocyte 15.6 % (N) 11.6 - 14.6 % 10-18-2018 Ellen Berkowitz distribution 02:00-399 [facility] (77427) width (RBC) (Work Phone: [Ratio] ) Hematocrit (Bld) 36.6 % (N) 36.1 - 50.3 % 10-18-2018 H don Berkowitz [Volume 02:00-399 [facility] (94480) fraction] (Work Phone: ) Hemoglobin (Bld) 11.4 g/dL (N) 12.1 - 17.2 g/dL 10-18-2018 Ellen Berkowitz [Mass/Vol] 02:00-0400 [facility] (42281) (Work Phone: ) Lymphocytes 1.56 10*3/uL (N) 0.9 - 2.9 10-18-2018 Ellen william (Bld) [#/Vol] 10*3/uL 02:00-399 [facility] (02524 ) (Work Phone: ) Lymphocytes/100 27.7 % (N) 20 - 40 % 10-18-2018 Ellen Berkowitz WBC (Bld) 02:00-0400 [facility] (27789) (Work Phone: ) MCH (RBC) 26.0 pg (N) 27 - 31 pg 10-18-2018 Ellen Juárez ton [Entitic mass] 02:00-0400 [facility] (67576) (Work Phone: ) MCHC 31.1 pg (N) 10-18-2018 Ellen Berkowitz 02:00-0400 [facility] (45804) (Work Phone: ) MCV (RBC) 83.4 fL (N) 80 - 100 fL 10-18-2018 Ellen powelln [Entitic vol] 02:00-040 [facility] (37133) (Work Phone: ) [place] ABS# 0.7 K/ul (N) 10-18-2018 Ellen Berkowitz 02:00-0400 [facility] (66550) (Work Phone: ) Monocytes/100 12.4 % (N) 2 - 8 % 10-18-2018 Ellen antonio WBC (Bld) 02:00-0400 [facility] (97366) (Work Phone: ) Neut ABS# 3.30 K/ul (N) 10-18-2018 Ellen Berkowitz 02:00-0400 [facility] (65023) (Work Phone: ) Neutrophils/100 58.5 % (N) 40 - 60 % 10-18-2018 Ellen Berkowitz WBC (Bld) 02:00-0400 [facility] (11875) (Work Phone: ) Platelets (Bld) 333 10*3/uL (N) 150 - 450 10-18-2018 Edvin Berkowitz [#/Vol] 10*3/uL 02:00-0400 [facility] (71311) (Work Phone: ) RBC (Bld) 4.39 10*6/uL (N) 4.2 - 6.1 10-18-2018 Ellen jaramillo [#/Vol] 10*6/uL 02:00-0400 [facility] (86861) (Work Phone: ) WBC (Bld) 5.64 10*3/uL (N) 3.5 - 10.5 10-18-2018 Ellen antonio [#/Vol] 10*3/uL 02:00-0400 [facility] (83501) (Work Phone: ) venous blood hemoglobin measurement (mass/volume) on 2018-05-27 Hemoglobin (Bld) 8.2 g/dL (L) 12.1 - 17.2 g/dL [facility] [Mass/Vol] [facility] (72874) blood neutrophils automated count (number/volume) on 2018-05-27 Neutrophils 8.5 10*3/uL (H) 1.7 - 7 10*3/uL [facility] (Bld) [#/Vol] [facility] (21037) blood monocytes/100 leukocytes on 2018-05-27 Monocytes/100 9 % (no code) 2 - 8 % [facility] WBC (Bld) [facility] (41010) blood monocytes automated count (number/volume) on 2018-05-27 Monocytes (Bld) 1.1 10*3/uL (H) 0.3 - 0.9 [facility] [#/Vol] 10*3/uL [facility] (92377) blood lymphocytes automated count (number/volume) on 2018-05-27 Lymphocytes 2.4 10*3/uL (no code) 0.9 - 2.9 [facility] (Bld) [#/Vol] 10*3/uL [facility] (93353) blood leukocytes automated count (number/volume) on 2018-05-27 WBC (Bld) 12.1 10*3/uL (H) 3.5 - 10.5 [facility] [#/Vol] 10*3/uL [facility] (56341) blood hematocrit (volume fraction) on 2018-05-27 Hematocrit (Bld) 26 % (L) 36.1 - 50.3 % [facility] [Volume [facility] fraction] (13074) blood erythrocytes automated count (number/volume) on 2018-05-27 RBC (Bld) 3.09 10*6/uL (L) 4.2 - 6.1 [facility] [#/Vol] 10*6/uL [facility] (70121) automated erythrocyte mean corpuscular volume on 2018-05-27 MCV (RBC) 84 fL (no code) 80 - 100 fL [facility] [Entitic vol] [facility] (80019) automated erythrocyte mean corpuscular hemoglobin concentration measurement (mass/volume) on 2018-05-27 MCHC (RBC) 32 g/dL (no code) 32 - 36 g/dL [facility] [Mass/Vol] [facility] (72097) automated erythrocyte mean corpuscular hemoglobin (mass per erythrocyte) on 2018-05-27 MCH (RBC) 27 pg (no code) 27 - 31 pg [facility] [Entitic mass] [facility] (92202) automated erythrocyte distribution width ratio on 2018-05-27 Erythrocyte 15.6 % (H) 11.6 - 14.6 % [facility] distribution [facility] width (RBC) (19389) [Ratio] automated eosinophil count on 2018-05-27 Eosinophils 0.1 10*3/uL (no code) 0.05 - 0.5 [facility] (Bld) [#/Vol] 10*3/uL [facility] (34578) automated blood platelet mean volume measurement on 2018-05-27 Platelet mean 10.9 fL (H) 7.2 - 11.7 fL [facility] volume (Bld) [facility] [Entitic vol] (93976) automated blood platelet count (count/volume) on 2018-05-27 Platelets (Bld) 263 10*3/uL (no code) 150 - 450 [facility] [#/Vol] 10*3/uL [facility] (70952) automated blood neutrophils/100 leukocytes on 2018-05-27 Neutrophils/100 70 % (no code) 40 - 60 % [facility] WBC (Bld) [facility] (70325) automated blood lymphocytes/100 leukocytes on 2018-05-27 Lymphocytes/100 20 % (no code) 20 - 40 % [facility] WBC (Bld) [facility] (48333) automated blood eosinophils/100 leukocytes on 2018-05-27 Eosinophils/100 1 % (no code) 1 - 4 % [facility] WBC (Bld) [facility] (06263) automated blood basophils/100 leukocytes on 2018-05-27 Basophils/100 0 % (no code) 0.5 - 1 % [facility] WBC (Bld) [facility] (01380) automated blood basophil count (count/volume) on 2018-05-27 Basophils (Bld) 0.0 10*3/uL (no code) 0 - 0.3 10*3/uL [facility] [#/Vol] [facility] (33173) urine urobilinogen measurement by automated test strip (mass/volume) on 2018-05-26 Urobilinogen (U) NORMAL (no code) [facility] [Mass/Vol] [facility] (08048) urine total bilirubin detection by test strip on 2018-05-26 Bilirubin Ql (U) Negative (no code) [facility] (82488) urine protein assay by test strip, semi-quantitativ e on 2018-05-26 Protein Ql (U) Negative (no code) [facility] (05148) urine ph measurement by test strip on 2018-05-26 pH (U) 6 [pH] (no code) 4.6 - 8 [pH] [facility] (52972) urine nitrite detection by test strip on 2018-05-26 Nitrite Ql (U) Negative (no code) [facility] (59225) urine leukocyte esterase detection by dipstick on 2018-05-26 Leukocyte Negative (no code) [facility] esterase Test [facility] strip Ql (U) (89546) urine ketones detection by automated test strip on 2018-05-26 Ketones Auto 4+ (*) [facility] test strip Ql [facility] (U) (44804) urine glucose detection by automated test strip on 2018-05-26 Glucose Auto Negative (no code) [facility] test strip Ql [facility] (U) (29409) urine color determination on 2018-05-26 Color (U) YELLOW (no code) [facility] (45886) urine clarity determination on 2018-05-26 Clarity (U) SLIGHTLY CLOUDY (no code) [facility] (11792) squamous epithelial cells detection in urine sediment by light microscopy on 2018-05-26 Epithelial no information (*) [facility] cells.squamous [facility] LM Ql (Urine (54021) sed) specific gravity of urine by test strip on 2018-05-26 Specific gravity 1.015 (*) [facility] (U) [Rel [facility] density] (96246) mucus detection in urine sediment by light microscopy on 2018-05-26 Mucus Ql (Urine SMALL (*) [facility] sed) [facility] (49553) erythrocytes detection in urine sediment by light microscopy on 2018-05-26 RBC Ql (U) 1+ (*) [facility] (45425) crystals detection in urine sediment by light microscopy on 2018-05-26 Crystals LM Ql NONE (no code) [facility] (Urine sed) [facility] (63452) complete urinalysis with reflex to culture on 2018-05-26 Urinalysis NO (no code) [facility] complete W [facility] Reflex Culture (55796) panel - Urine casts detection in urine sediment by light microscopy on 2018-05-26 Casts LM Ql NONE (no code) [facility] (Urine sed) [facility] (40752) bacteria detection in urine sediment by light microscopy on 2018-05-26 Bacteria LM Ql TRACE (no code) [facility] (Urine sed) [facility] (82194) automated urine sediment leukocyte count by microscopy (number/high power field) on 2018-05-26 WBC LM.HPF RARE (no code) [facility] (Urine sed) [facility] [#/Area] (73884) automated urine sediment erythrocyte count by microscopy (number/high power field) on 2018-05-26 RBC LM.HPF RARE (no code) [facility] (Urine sed) [facility] [#/Area] (04294) tsh on 2017-05-10 TSH Qn 2.17 uIU/mL (N) 05-10-2017 Ellen Berkowitz 02:00-0400 , [employer] (02857) (Work Phone: ) lipid on 2017-05-10 C/HDL 2.8 Ratio (N) 05-10-2017 Ellen Berkowitz 02:00-0400 [facility] (61542) (Work Phone: ) Cholesterol 219 mg/dL (N) 180 - 200 mg/dL 05-10-2017 Edvin Berkowitz [Mass/Vol] 02:00-0400 [facility] (79201) (Work Phone: ) Cholesterol in 78.0 mg/dL (N) 05-10-2017 Ellen galeano HDL [Mass/Vol] 02:00-0400 [facility] (91774) (Work Phone: ) Cholesterol in 129 mg/dL (N) 0 - 100 mg/dL 05-10-2017 Rome Berkowitz LDL [Mass/Vol] 02:00-0400 [facility] (74808) (Work Phone: ) Triglyceride 61 mg/dL (N) 0 - 150 mg/dL 05-10-2017 Ellen Berkowitz [Mass/Vol] 02:00-0400 [facility] (56712) (Work Phone: ) comp metabolic on 2017-05-10 Albumin 4.4 g/dL (N) 3.4 - 5.4 g/dL 05-10-2017 Ellen william [Mass/Vol] 02:00-0400 [facility] (45192) (Work Phone: ) Albumin/Globulin 1.8 {ratio} (N) 1 - 2.5 {ratio} 8 Ellen Berkowitz [Mass ratio] 02:00-0400 [facility] (27869) (Work Phone: ) ALK PHOS 80 U/L (N) 05-10-2017 Ellen Berkowitz 02:00-0400 [facility] (62471) (Work Phone: ) ALT [Catalytic 21 U/L (N) 4 - 40 U/L 05-10-2017 Ellen Berkowitz activity/Vol] 02:00-0400 [facility] (73966) (Work Phone: ) Anion gap 12 mmol/L (N) 3 - 11 mmol/L 05-10-2017 Ellen antonio [Moles/Vol] 02:00-0400 [facility] (56968) (Work Phone: ) AST [Catalytic 19 U/L (N) 10 - 34 U/L 05-10-2017 Ellen Berkowitz activity/Vol] 02:00-0400 [facility] (03097) (Work Phone: ) B/C Ratio 22.1 Ratio (N) 05-10-2017 Ellen Berkowitz 02:00-0 [facility] (10608) (Work Phone: ) BILI T 0.2 mg/dL (N) 05-10-2017 Ellen Berkowitz 02:00-040 [facility] (50130) (Work Phone: ) Calcium 9.2 mg/dL (N) 8.5 - 10.2 mg/dL 05-10-2017 Ellen Berkowitz [Mass/Vol] 02:00-399 [facility] (69770) (Work Phone: ) Chloride 103 mmol/L (N) 95 - 106 mmol/L 05-10-2017 Ellen Berkowitz [Moles/Vol] 02:00-399 [facility] (82397) (Work Phone: ) CO2 [Moles/Vol] 26.0 mmol/L (N) 23 - 29 mmol/L 05-10-2017 Ellen Berkowitz 02:00-0400 [facility] (52334) (Work Phone: ) Creatinine 0.9 mg/dL (N) 05-10-2017 Ellen Berkowitz [Mass/Vol] 02:00 [facility] (18057) (Work Phone: ) GFR/1.73 sq M 82 (N) 90 - 120 05-10-2017 Ellen Childs anston predicted among mL/min/{1.73_m2} mL/min/{1.73_m2} 02:00 [facility] (79270) non-blacks MDRD (Work Phone: (S/P/Bld) [Vol ) rate/Area] Globulin (S) 2.5 g/dL (N) 2 - 3.5 g/dL 05-10-2017 Ellen Berkowitz [Mass/Vol] 02:00-0400 [facility] (39271) (Work Phone: ) Glucose 92 mg/dL (N) 60 - 125 mg/dL 05-10-2017 Ellen william [Mass/Vol] 02:00-0400 [facility] (37047) (Work Phone: ) Osmolality 276 mOsmo (N) 05-10-2017 Ellen Berkowitz [Osmolality] 02:00-0 [facility] (58091) (Work Phone: ) Potassium 4.0 mmol/L (N) 3.7 - 5.2 mmol/L 05-10-2017 Edvin Berkowitz [Moles/Vol] 02:00-399 [facility] (79783) (Work Phone: ) Sodium 137 mmol/L (N) 135 - 145 mmol/L 05-10-2017 Edvin Berkowitz [Moles/Vol] 02:00-399 [facility] (77336) (Work Phone: ) TPRO 6.8 g/dL (N) 05-10-2017 Ellen Berkowitz 02:00-0400 [facility] (13601) (Work Phone: ) Urea nitrogen 19 mg/dL (N) 7 - 20 mg/dL 05-10-2017 Ellen Berkowitz [Mass/Vol] 02:00-0 [facility] (82371) (Work Phone: ) cbc with differential on 2017-05-10 Baso ABS# 0.0 K/ul (N) 05-10-2017 Ellen Berkowitz 02:00-0400 [facility] (53565) (Work Phone: ) Basophils/100 0.3 % (N) 0.5 - 1 % 05-10-2017 Ellen antonio WBC (Bld) 02:00-399 [facility] (76123) (Work Phone: ) Eos ABS# 0.1 K/ul (N) 05-10-2017 Ellen Berkowitz 02:00-0 [facility] (19807) (Work Phone: ) Eosinophils/100 0.8 % (N) 1 - 4 % 05-10-2017 Ellen Berkowitz WBC (Bld) 02:00-399 [facility] (38272) (Work Phone: ) Erythrocyte 15.4 % (N) 11.6 - 14.6 % 05-10-2017 Ellen Berkowitz distribution 02:00-399 [facility] (61141) width (RBC) (Work Phone: [Ratio] ) Hematocrit (Bld) 37.7 % (N) 36.1 - 50.3 % 05-10-2017 H don Berkowitz [Volume 02:00-399 [facility] (67101) fraction] (Work Phone: ) Hemoglobin (Bld) 12.2 g/dL (N) 12.1 - 17.2 g/dL 05-10-2017 Ellen Berkowitz [Mass/Vol] 02:00-399 [facility] (98800) (Work Phone: ) Lymphocytes 1.70 10*3/uL (N) 0.9 - 2.9 05-10-2017 Ellen william (Bld) [#/Vol] 10*3/uL 02:00-399 [facility] (53749 ) (Work Phone: ) Lymphocytes/100 25.7 % (N) 20 - 40 % 05-10-2017 Ellen Berkowitz WBC (Bld) 02:00-399 [facility] (37089) (Work Phone: ) MCH (RBC) 27.0 pg (N) 27 - 31 pg 05-10-2017 Ellen galeano [Entitic mass] 02:00-399 [facility] (80710) (Work Phone: ) MCHC 32.4 pg (N) 05-10-2017 Ellen Berkowitz 02:00-0400 [facility] (24747) (Work Phone: ) MCV (RBC) 83.4 fL (N) 80 - 100 fL 05-10-2017 Ellen sebastian [Entitic vol] 02:00-399 [facility] (47560) (Work Phone: ) [place] ABS# 0.7 K/ul (N) 05-10-2017 Ellen Berkowitz 02:00-0400 [facility] (99168) (Work Phone: ) Monocytes/100 10.6 % (N) 2 - 8 % 05-10-2017 Ellen antonio WBC (Bld) 02:00-399 [facility] (69388) (Work Phone: ) Neut ABS# 4.15 K/ul (N) 05-10-2017 Ellen Berkowitz 02:00-399 [facility] (18049) (Work Phone: ) Neutrophils/100 62.6 % (N) 40 - 60 % 05-10-2017 Ellen Berkowitz WBC (Bld) 02:00-399 [facility] (37989) (Work Phone: ) Platelets (Bld) 295 10*3/uL (N) 150 - 450 05-10-2017 Edvin Berkowitz [#/Vol] 10*3/uL 02:00-0 [facility] (31743) (Work Phone: ) RBC (Bld) 4.52 10*6/uL (N) 4.2 - 6.1 05-10-2017 Ellen jaramillo [#/Vol] 10*6/uL 02:00-0 [facility] (95059) (Work Phone: ) WBC (Bld) 6.62 10*3/uL (N) 3.5 - 10.5 05-10-2017 Ellen antonio [#/Vol] 10*3/uL 02:00-0 [facility] (11250) (Work Phone: ) %hba1c on 2017-05-10 Glucose 120 mg/dL (N) 60 - 125 mg/dL 05-10-2017 Ellen william [Mass/Vol] 02:00-399 [facility] (82952) (Work Phone: ) HbA1c (Bld) 5.8 % (N) 0 - 5.7 % 05-10-2017 Ellen sebastian [Mass fraction] 02:00-0400 [facility] (90775) (Work Phone: ) other on 2017-04-01 Hep B Surface Reactive (no code) 04-01-2017 [facility] (000 00) Ab, Qual 17:11-0500 imm/path on 2017-04-01 MeV IgG IA Qn 231.0 (no code) 04-01-2017 [facility] (000 00) (S) 18:41-0500 MuV IgG IA Ql >300.0 (no code) 04-01-2017 [facility] (000 00) (S) 18:42-0500 Rubella virus 6.81 (no code) 04-01-2017 [facility] (000 00) IgG Qn (S) 18:41-0500 VZV IgG IA Qn 1896 (no code) 04-01-2017 [facility] (000 00) (S) 18:41-0500 Vital Signs Vital Sign Value Interpretation Reference Date Time Care Prov ider Facility (Normalized) (Normalized) Range BMI (Body Mass 36.6 kg/m2 (no code) 15 - 25 kg/m2 10-18-2018 Arjun Berkwoitz Index) 02:00-0400 [facility] [address] (46790) (Work Phone: ) BMI (Body Mass 36.6 kg/m2 (no code) 15 - 25 kg/m2 05-10-2017 Arjun Berkowitz Index) 02:00-0400 [facility] [address] (32439) (Work Phone: ) BMI (Body Mass 37.2 kg/m2 (no code) 15 - 25 kg/m2 10-29-2016 Arjun Berkowitz Index) 02:00-0400 [facility] [address] (66919) (Work Phone: ) Body weight 97 kg (N) kg 10-18-2018 Cecille Berkowitz 02:00-0400 [facility] [address] (48210) (Work Phone: ) Body weight 97 kg (N) kg 05-10-2017 Cecilleliam Berkowitz 02:00 [facility] [address] (88582) (Work Phone: ) Body weight 98 kg (N) kg 10-29-2016 Cecille Rome [facility]kowitz 02:00 [facility] [address] (02691) (Work Phone: ) BP Diastolic 80 mm[Hg] (N) 60 - 80 mm[Hg] 10-18-2018 Agata Berkowitz 02:00 [facility] [address] (83739) (Work Phone: ) BP Diastolic 64 mm[Hg] (N) 60 - 80 mm[Hg] 10-18-2018 Agata Berkowitz 02:00 [facility] [address] (03980) (Work Phone: ) Blood Pressure 126/ (N,N) Systolic: 90 - 05-10-2017 Anaya Berkowitz 74mm[Hg] 120 mm[Hg] 02:00 [facility] [address] (80299) (Work Diastolic: 60 Phone: - 80 mm[Hg] ) Blood Pressure 128/ (N,N) Systolic: 90 - 10-29-2016 Anaya Berkowitz 70mm[Hg] 120 mm[Hg] 02:00 [facility] [address] (34187) (Work Diastolic: 60 Phone: - 80 mm[Hg] ) BP Systolic 154 mm[Hg] (N) 90 - 120 10-18-2018 Cecille Berkowitz mm[Hg] 02:00 [facility] [address] (08409) (Work Phone: ) BP Systolic 112 mm[Hg] (N) 90 - 120 10-18-2018 Cecille Berkowitz mm[Hg] 02:00 [facility] [address] (62578) (Work Phone: ) Height 163 cm (N) cm 10-18-2018 Cecille Berkowitz 02:00 [facility] [address] (28642) (Work Phone: ) Height 163 cm (N) cm 05-10-2017 Cecille Berkowitz 02:00 [facility] [address] (15748) (Work Phone: ) Height 163 cm (N) cm 10-29-2016 Cecille Berkowitz 02:00 [facility] [address] (83571) (Work Phone: ) Pulse (Heart 95 /min (N) 60 - 100 /min 10-18-2018 Tata Berkowitz Rate) 02:00-399 [facility] [address] (67392) (Work Phone: ) Pulse (Heart 86 /min (N) 60 - 100 /min 05-10-2017 Tata Berkowitz Rate) 02:00-399 [facility] [address] (31646) (Work Phone: ) Pulse (Heart 80 /min (N) 60 - 100 /min 10-29-2016 Tata Berkowitz Rate) 02:00 [facility] [address] (70516) (Work Phone: ) Pulse Oximetry 98 % (N) 95 - 100 % 10-18-2018 Cecille Berkowitz 02:00 [facility] [address] (85701) (Work Phone: ) Pulse Oximetry 97 % (N) 95 - 100 % 05-10-2017 Cecille Berkowitz 02:00 [facility] [address] (00938) (Work Phone: ) Pulse Oximetry 98 % (N) 95 - 100 % 10-29-2016 Cecille Berkowitz 02:00-0400 Anna [facility], [facility] [address] (10938) (Work Phone: ) Interventions No Information Plan of Treatment Normalized Care Care Detail Care Activity Date Care Provider F acility Activity Development of care no information 10-18-2018 Cecille Berkowitz MD, plan [phone] [employer] ([id number]) (Work Phone: ) Development of care Left lower pelvia 05-10-2017 Cecille Berkowitz [place], [place] [phone] [employer] ([id number]) ( Work PCOS-UA Phone: negative-will ) schedule pelvic ultrasound for further evaluation-patient not interested in control as they want to try for a baby within the next year. Instructed patient we will call her with results of the ultrasound Development of care Esophageal Reflux - 10-29-2016 Cecille Berkowitz MD, plan the patient has been [phone] [employer] ([id number]) (Work counseled against Phone: excessive intake of ) caffeine, spicy foods, peppermint, and cinnamon - all of which can exacerbate esophageal reflux.The patient is to take medications as prescribed and call the office if the symptoms are not improving.PCOS-recen tly started metformin-monitor symptoms Palpitations-increas e omeprazole-if symptoms persist, schedule holter monitor Ferritin Goal: Ferritin no information Cecille Berkowizt MD, Notes: add to blood [address] [employer] ([id number]) (Work from 10/18 Phone: ) Iron Goal: Iron Notes: no information Cecille Berkowitz MD, add to blood [place] [address] [employer] ([id number]) (Work 10/18 Phone: ) Tibc Goal: Tibc Notes: no information Cecille Berkowitz MD, add [place] blood [place] [address] [employer] ([id number]) (Work 10/18 Phone: ) Goals No Information Social History Normalized Code Original Code Date Value Marital status Marital status no information no information no information no information Tobacco history Functional Status The data below is from unstructured sources Query Response Date Oneil rded Patient Orientation Person Place Time Situation May 10, 2015 3:14pm Query Response Date Oneil rded Patient Orientation Person Place Time August 01, 2015 7:55pm Comprehension Ability Understands Co ncepts August 01, 2015 7:55pm Query Response Date Oneil rded Pasero Opioid-induced Sedation Scale (POSS) Awake and alert May 26, 2018 11:35pm No Functional Status data Mental Status No Information Encounters Encounter Normalized Encounter Encounter Diagnosis Care Provi gay Organization Date Type 05-26-2018 Evaluation and no information EPI JAMES Work no organization name - management of Phone: 05-27-2018 inpatient 10-29-2016 Office outpatient new Gastro-esophageal Cecille W agner (no [facility] 45 minutes reflux disease without phone) (no paulina ne) esophagitis 10-18-2018 Office outpatient Right upper quadrant Cecille Nails gner (no RALPH Costa MD visit 15 minutes pain phone) (no phone) 05-10-2017 Office outpatient Pelvic and perineal Cecille Nailsg ner (no RALPH Costa MD visit 15 minutes pain phone) (no phone) 01-07-2018 Patient encounter no information no name no or ganization name 05-13-2017 Patient encounter no information no name no or ganization name NEGATED Patient encounter no information no name no or ganization name 11-12-2015 06-23-2019 Patient encounter no information (no phone) Ellen ROSAS procedure (no phone) 11-29-2018 Patient encounter no information no name no or ganization name procedure 10-28-2018 Patient encounter no information no name no or ganization name procedure 10-28-2018 Patient encounter no information no name no or ganization name procedure 05-26-2018 Patient encounter no information no name no or ganization name procedure Medical Equipment No Information Payers Normalized Payer Value [facility] [id number]) Summary Purpose eClinicalWorks SubmissioneClinicalWorks SubmissionInterface ExchangeInterface ExchangeInterface Exchange Advance Directives No Advance Directive data Directive Response Recor ded Date/Time Advance Directives No 7:39pm Organ Donor No 05/04/15 7:39pm Resuscitation Status Full Code 05/04/15 7:39pm Directive Response Recor ded Date/Time Advance Directives No 8:29pm Organ Donor No 08/09/15 8:29pm Resuscitation Status Full Code 08/09/15 8:29pm Directive Response Recor ded Date/Time Advance Directives No 8:52am Organ Donor No 05/08/15 8:52am Resuscitation Status Full Code 05/08/15 8:52am Directive Response Recor ded Date/Time Advance Directives No 1:36pm Organ Donor No 09/06/15 1:36pm Resuscitation Status Full Code 09/06/15 1:36pm Directive Response Recor ded Date/Time Advance Directives No 7:55pm Organ Donor No 08/01/15 7:55pm Resuscitation Status Full Code 08/01/15 7:55pm Directive Response Recor ded Date/Time Advance Directives No 7:37am Organ Donor No 05/11/15 7:37am Resuscitation Status Full Code 05/11/15 7:37am Directive Response Recor ded Date/Time Advance Directives No 2:38am Health Care Power of Slurry Plant Operator No 05/26/18 2:38am Organ Donor No 05/26/18 2:38am Resuscitation Status Full Code 05/26/18 2:38am Discharge Instructions No hospital discharge instructions.No hospital discharge instructions. Patient Instructions Physician Instructions New, Converted or Re-Newed RX: RX on Chart Goal/Follow Up: Follow-up with Dr. Garcia in 6 weeks. Activity: Activity as Tolerated Nothing Inside Vagina: No Douching, No [place], No Tampons Discharge Diet: No Restrictions Symptoms to Report to : Bleeding Excessive, Pain Increased, Fever Over 101 Degrees F, Vaginal Bleeding Increase, Vaginal Discharge Foul, Shortness of Breath For Any Problems or Questions: Contact Your Physician Care Plan Goal:: Follow-up with Dr. Garcia in 6 weeks. No hospital discharge instructions.No hospital discharge instructions.No hospital discharge instructions.No hospital discharge instruction information available. Family History Diagnosis Age At Onset Osteoporosis Unknown Arthritis Unknown Diagnosis Age At Onset Cancer Unknown Alcoholism Unknown Assessments Condition Codes Effectiv e Dates Right upper quadrant pain ICD-10: R1 0.11 ICD-9: 789.01 10/18/2018 Impaired fasting glucose ICD-10: R73 .01 ICD-9: 790.21 10/18/2018 Pelvic and perineal pain ICD-10: R10 .2 ICD-9: 625.9 05/10/2017 Polycystic ovarian syndrome ICD-10: E28.2 ICD-9: 256.4 05/10/2017 Palpitations ICD-10: R00.2 ICD-9: 785.1 10/29/2016 Gastro-esophageal reflux disease without esophagitis ICD-10: K21.9 ICD-9: 530.81 10/29/2016 Condition Codes Effectiv e Dates Anemia, unspecified [...] without esophagitis ICD-10: K21.9 ICD-9: 530.81 10/29/2016 Chief Complaint Reason For Visit Effective Dates Notes abdominal pain 10/18/2018 abdominal pain 05/10/2017 palpitations 10/29/2016 Review of System System Result Effective Dates Constitutional recent illness [...] reactive to light and accomodation 10/29/2016 None History of Present Illness Symptom Name Status Resu lt Effective Date Notes Location in the [facility] 10/18/2018 None Quality aching 10/18/2018 None Quality [...] reflux Pertinent Findings Denies cough 10/29/2016 None Instructions Comment INCREASE OMEPRAZOLE TO TWICE DAILY [...] holter monitor pelvic ultrasound wednesday any time wednesday afternoon fastin labs . Left lower [...] sugars -check Hgb A1C with labs today Comment INCREASE OMEPRAZOLE TO TWICE DAILY CALL [...] sugars -check Hgb A1C with labs today Additional Source Comments This clinical document has been generated using [employer] software that has been certified by the Office of the National Coordinator for Health Information Technology (ONC 15.99.04.3023.Diam.31.00.0.073571) and the National Committee for Art Sales Consultant (NCQA, as an eMeasure certified technology). FOR RECORDS PERTAINING TO PATIENTS WHO ARE OR HAVE BEEN ENROLLED IN A CHEMICAL D EPENDENCY/SUBSTANCE ABUSE PROGRAM, SOME INFORMATION MAY BE OMITTED. This clinica l summary was aggregated from multiple sources. Caution should be exercised in using it in the provision of clinical care. This summary normalizes information from multiple sources, and as a consequence, information in this document may ma terially change the coding, format and clinical context of patient data. In delmer tion, data may be omitted in some cases. CLINICAL DECISIONS SHOULD BE BASED ON T HE PRIMARY CLINICAL RECORDS. [employer] provides no warranty or guara ntee of the accuracy or completeness of information in this document.The followi information is based on time limited clinical information UNRECOGNIZED CONTENT PROVIDED BELOW FOR UNRECOGNIZED SECTION MEDICAL (GENERAL) HISTORY Type Description Date Medical History PCOS Medical History Anemia complicating , third trimester Medical History anemia (r esolved 08/01/2015) Surgical History ear tube placement Surgical History [place] teeth extraction Hospitalization History child
--- OUTSIDE RECORDS SUMMARY | 2019-08-20 17:38 | XMS REPORT | CCD ---
Author Author Mervin Munroe Organization Lina Berkowitz MD, [facility] Address [address] [place] [address] Phone Care Team Providers Care Cardiac Rehabilitation Specialist Name Role Phone PP Unavailable CCM Unavailable Summary Purpose Interface Exchange Insurance Providers Payer name Policy type / Coverage type Covered green party ID Effective Begin Date Effective End Date [facility] Insurance [id number] Un known Family history Mother Diagnosis Age At Onset Osteoporosis Unknown Arthritis Unknown Father Diagnosis Age At Onset Cancer Unknown Alcoholism Unknown Social History Social History Element Codes Description Effective Dates Marital status Unknown M james clinton 10/29/2016 Number of children Unknown 1 10/29/2016 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 10/29/[address]: 550358169 Never smoker 10/29/2016 Alcohol history Unknown occasionally drinks alcohol 10/29/2016 Allergies, Adverse Reactions, Alerts Substance Reaction Codes Entered Date Inactivated Date Status AUGMENTIN RxNorm: 163956 10/29/2016 No Inactive Date Active Past Medical [...] Date Sta tus Fill Instructions vit #113-ir [id number] oral RxNorm: oral No Start Date Active omeprazole 20 mg cap megan,delayed release RxNorm: 898498 1 Capsule(s) PO daily No Start Date 05/09/2017 Inactive metformin 500 mg tablet RxNorm: 609994 1 Tablet(s) PO BID No Start Date [...] Code Item Item Code Result Date %Hba1C Grl280 % HbA1c 55137-1 5.9 % 10/19/2018 %Hba1C Djg862 Gluc Ave 123 mg/dL 10/19/2018 Comp Metabolic Ywb075 NA 140 mEq/L 10/18/2018 Comp Metabolic Ran104 K 4.3 mEq/L 10/18/2018 Comp Metabolic Snv309 CL 105 mEq/L 10/18/2018 Comp Metabolic Dlg558 CO2 29.0 mEq/L 10/18/2018 Comp Metabolic Lqt759 AN ION GAP 10 10/18/2018 Comp Metabolic Peg472 GL UCOSE 89 mg/dL 10/18/2018 Comp Metabolic Nxr479 Cr eat 0.9 mg/dL 10/18/2018 Comp Metabolic Bgo635 eG FR 78 ml/min/1.73m2 10/18 Comp Metabolic Ycy430 BUN 13 mg/dL 10/18/2018 Comp Metabolic Vpg283 B/ C Ratio 14.6 Ratio 10/18/2018 Comp Metabolic Pms051 CA LCIUM 9.2 mg/dL 10/18/2018 Comp Metabolic Trl510 AL K PHOS 64 U/L 10/18/2018 Comp Metabolic Lar132 T(SGOT) 15 U/L 10/18/2018 Comp Metabolic Gnc317 AL T(SGPT) 18 U/L 10/18/2018 Comp Metabolic Azv195 BI LI T 0.2 mg/dL 10/18/2018 Comp Metabolic Qas835 AL BUMIN 4.2 g/dL 10/18/2018 Comp Metabolic Gnt719 TP RO 6.6 g/dL 10/18/2018 Comp Metabolic Hhq847 GL OB 2.4 g/dL 10/18/2018 Comp Metabolic Vrq869 A/ G Ratio 1.7 Ratio 10/18/2018 Comp Metabolic Eei303 Os mo 279 mOsmo 10/18/2018 Tsh Ord6 [...] 26.0 pg 10/18/2018 Cbc With Differential Ord2 [place]% 12.4 % 10/18/2018 Cbc With Differential Ord2 [...] 1.56 K/ul 10/18/2018 Cbc With Differential Ord2 [place] ABS# 0.7 K/ul 10/18/2018 Cbc With Differential Ord2 Eos ABS# 0.1 K/ul 10/18/2018 Cbc With Differential Ord2 Baso ABS# 0.0 K/ul 10/18/2018 Lipid Ord30 CHOL 171 mg/dL 10/18/2018 Lipid Ord30 HDL 70.0 mg/dl 10/18/2018 Lipid Ord30 TRIG 62 mg/dL 10/18/2018 Lipid Ord30 LDL 89 mg/dL 10/18/2018 Lipid Ord30 C/HDL 2.4 Ratio 10/18/2018 Comp Metabolic Ltw813 NA 137 mEq/L 05/10/2017 Comp Metabolic Ptd279 K 4.0 mEq/L 05/10/2017 Comp Metabolic Rxb787 CL 103 mEq/L 05/10/2017 Comp Metabolic Hto393 CO2 26.0 mEq/L 05/10/2017 Comp Metabolic Nup937 AN ION GAP 12 05/10/2017 Comp Metabolic Qvv538 GL UCOSE 92 mg/dL 05/10/2017 Comp Metabolic Ici042 Cr eat 0.9 mg/dL 05/10/2017 Comp Metabolic Tvh399 eG FR 82 ml/min/1.73m2 05/10 Comp Metabolic Qsb762 BUN 19 mg/dL 05/10/2017 Comp Metabolic Xpg201 B/ C Ratio 22.1 Ratio 05/10/2017 Comp Metabolic Efa551 CA LCIUM 9.2 mg/dL 05/10/2017 Comp Metabolic Qpa252 AL K PHOS 80 U/L 05/10/2017 Comp Metabolic Zze045 T(SGOT) 19 U/L 05/10/2017 Comp Metabolic Rtv569 AL T(SGPT) 21 U/L 05/10/2017 Comp Metabolic Tuo654 BI LI T 0.2 mg/dL 05/10/2017 Comp Metabolic Ata846 AL BUMIN 4.4 g/dL 05/10/2017 Comp Metabolic Uyh204 TP RO 6.8 g/dL 05/10/2017 Comp Metabolic Qch871 GL OB 2.5 g/dL 05/10/2017 Comp Metabolic Duo856 A/ G Ratio 1.8 Ratio 05/10/2017 Comp Metabolic Tfd327 Os mo 276 mOsmo 05/10/2017 Cbc With [...] 27.0 pg 05/10/2017 Cbc With Differential Ord2 [place]% 10.6 % 05/10/2017 Cbc With Differential Ord2 [...] 1.70 K/ul 05/10/2017 Cbc With Differential Ord2 [place] ABS# 0.7 K/ul 05/10/2017 Cbc With Differential Ord2 Eos ABS# 0.1 K/ul 05/10/2017 Cbc With Differential Ord2 Baso ABS# 0.0 K/ul 05/10/2017 Lipid Ord30 CHOL 219 mg/dL 05/10/2017 Lipid Ord30 HDL 78.0 mg/dl 05/10/2017 Lipid Ord30 TRIG 61 mg/dL 05/10/2017 Lipid Ord30 LDL 129 mg/dL 05/10/2017 Lipid Ord30 C/HDL 2.8 Ratio 05/10/2017 Tsh Ord6 TSH (3rd IS) 2.17 uIU/mL 05/10/2017 %Hba1C Txz527 % HbA1c 19246-2 5.8 % 05/10/2017 %Hba1C Zjc258 Gluc Ave 120 mg/dL 05/10/2017 Review of [...] 1: 112/64 Code: 8480-6 BMI: 36.6 Code: 92078-6 Heart Rate 1: 95 bpm Height: 5'4" SpO2: 98% Weight: 213 lbs 05/10/2017 Blood Pressure 1: 126/74 Code: 8480-6 BMI: 36.6 Code: 46764-5 Heart Rate 1: 86 bpm Height: 5'4" SpO2: 97% Weight: 213 lbs 10/29/2016 Blood Pressure 1: 128/70 Code: 8480-6 BMI: 37.2 Code: 09262-6 Heart Rate 1: 80 bpm Height: 5'4" [...] Encounters Encounter Performer Loca tion Codes Date ([id number]) [id number] EST. P ATIENT, LEVEL III Diagnosis: Right upper quadrant pain[ICD10: R10.11] Diagnosis: Impaired fasting glucose[ICD10: R73.01] Cecille Berkowitz MD, [facility] CPT-4: 45719 10/18/2018 ([id number]) [id number] EST. P ATIENT, LEVEL III Diagnosis: Pelvic and perineal pain[ICD10: R10.2] Diagnosis: Polycystic ovarian syndrome[ICD10: E28.2] [facility] CPT-4: 15041 05/10/2017 OFFICE VISIT, NEW - LEVEL 4 Diagnosis: Gastro-esophageal reflux disease without esophagitis[ICD10: K21.9] Diagnosis: Polycystic ovarian syndrome[ICD10: E28.2] Diagnosis: Palpitations[ICD10: R00.2] [facility] CPT- 4: 97880 10/29/2016 Plan of Care Planned Activity Notes [...] labs today 10/18/2018 Appointment: Cecille Munroe [facility]el[facility] [place] (30 min) Complex 10/18/2018 Patient Education: Patient Medication Summary Completed 10/18/2018 Visit Plan: Left lower pelvia pain- history of PCOS-UA negative-will schedule pelvic ultrasound for further evaluation-patient not interested in control as they want to try for a baby within the next year. Instructed patient we will call her with results of the ultrasound 05/10/2017 Appointment: Cecille Munroe WPtel: [facility] [place] (30 min) Complex 05/10/2017 Patient Education: [...] holter monitor 10/29/2016 Appointment: Cecille Munroe WPtel: [facility] [place] New Patient 10/29/2016 Patient Education: Patient [...]
--- OUTSIDE RECORDS SUMMARY | 2019-08-20 17:39 | XMS REPORT ---
Author Mervin Dennis [facility] eClinicalWorks Address Unknown Phone Unavailable Care Team Providers Care Clinical Trial Manager Name Role Phone JAGDISH CROWDER CP Unavailable Allergies, Adverse Reactions, Alerts Substance Reaction Event Type Augmentin rash Drug Allergy Problems Problem Type Condition Code Onset Dates Condition Statu s Assessment Routine follow-up Z39.2 Active Problem anemia O90.81 Active Medications Medication Code System Code Instructions Start Date End Date Status Dosage Stool Softener [facility] [address]-06 100 MG Orally Once a day 1 capsule as needed Procedures Procedure Coding System Code Date Office Visit, Est Pt., Level 3 CPT-4 68402 A [facility] 2015 Vital Signs Date/Time: June 18, 2015 Temperature 98.9 F Weight 210.9 lbs Height 64 in BMI 36.20 Index Blood Pressure Diastolic 71 mmHg Blood Pressure Systolic 122 mmHg Cardiac Monitoring Heart Rate 88 bpm Results No Known Results Summary Purpose eClinicalWorks Submission
--- OUTSIDE RECORDS SUMMARY | 2019-08-20 17:39 | XMS REPORT ---
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 9 Active 11879740 ALLERGIES Substance Reaction Event Type Date Status Augmentin rash Drug Allergy Oct, Active SOCIAL HISTORY No smoking Hx information available PLAN OF CARE VITAL SIGNS Height 64 in 2015-11-22 Weight 199 lbs 2015-11-22 Heart Rate 66 bpm 2015-11-22 Respiratory Rate 18 2015-11-22 BMI 34.15 kg/m2 2015-11-22 Blood pressure systolic 112 mmHg 2015-11-22 Blood pressure diastolic 60 mmHg 2015-11-22 MEDICATIONS Medication Instructions Dosage Frequency Start Date End Date Duration S tatus Prozac 20 MG Orally Once a day 1 capsule in the morning 24h Active Omeprazole 20 MG Orally Once a day 2 capsules 24h Active Probiotic - Active Vitamin B Complex - Acti ve RESULTS Name Result Date Reference Range TSH W/ FREE T4 2015-11-22 TSH 1.370 0.450-4.500 T4,Free(Direct) 0.94 0.82-1.77 PROCEDURES Procedure Date Ordered Related Diagnosis Body Site ROUTINE VENIPUNCTURE 2015-11-22 N/A ASSAY THYROID STIM HORMONE Nov 22, 2015 VENIPUNCT, ROUTINE* Nov 22, 2015 ASSAY OF FREE THYROXINE Nov 22, 2015 Office Visit, Est Pt., Level 3 Nov 22, 2015 IMMUNIZATIONS No Known Immunizations
--- OUTSIDE RECORDS SUMMARY | 2019-08-20 17:39 | XMS REPORT ---
Author Author Mervin CROWDER [facility] Address [address] [place] [address] Care Team Providers Care Director Of Market Research Name Role Phone JAGDISH CROWDER Unavailable PROBLEMS Type Condition ICD9-CM Code VKD46-VB Code Onset Dates Condition S tatus SNOMED Code Problem Gastroesophageal reflux disease, esophagitis pre sence not specified K21.9 Active 357830007 Problem Patient is a currently breast-feeding mother Z39.1 Active 113174599 Assessment Cervical lymphadenopathy R59.0 Oct, A ctive 273794115 Problem Anxiety state, unspecified F41.1 Act armando [id number] Problem Depressive disorder, not elsewhere classified F32. 9 Active 02665454 ALLERGIES Unknown Allergies SOCIAL HISTORY No smoking Hx information available PLAN OF CARE VITAL SIGNS MEDICATIONS Unknown Medications RESULTS No Results PROCEDURES No Known procedures IMMUNIZATIONS No Known Immunizations
--- OUTSIDE RECORDS SUMMARY | 2019-08-20 17:39 | XMS REPORT ---
Author Mervin Dennis [facility] eClinicalWorks Address Unknown Phone Unavailable Care Team Providers Care Perinatal Tech Name Role Phone JAGDISH CROWDER CP Unavailable Allergies No Known Allergies Problems Problem Type Condition Code Onset Dates Condition Statu s Problem Patient is a currently breast-feeding mother Z39.1 Active Problem Anxiety state, unspecified F41.1 A ctive Problem Gastroesophageal reflux disease, esophag itis presence not specified K21.9 Active Problem Depressive disorder, not elsewhere classified F32.9 Active Assessment Pre-employment examination Z02.1 A ctive Medications No Known Medications Procedures Procedure Coding System Code Date RUBELLA ANTIBODY CPT-4 50007 Jan 02, 2016 MUMPS ANTIBODY CPT-4 59241 Jan 02, 2016 HEP B SURFACE ANTIBODY CPT-4 72601 Jan 01, 016 VARICELLA-ZOSTER ANTIBODY CPT-4 67542 Dec RUBEOLA ANTIBODY CPT-4 71932 Jan 02, 2016 VENIPUNCT, ROUTINE* CPT-4 66391 Jan 02, 2016 Results Name Result Date Reference Range Unit Abnormali ty Flag ROUTINE VENIPUNCTURE Summary Purpose eClinicalWorks Submission
--- OUTSIDE RECORDS SUMMARY | 2019-08-20 17:39 | XMS REPORT | CCD ---
Author Author Mervin Munroe Organization Lina Berkowitz MD, [facility] Address [address] [place] [address] Phone Care Team Providers Care Regional Property Manager Name Role Phone PP Unavailable CCM Unavailable Summary Purpose Interface Exchange Insurance Providers Payer name Policy type / Coverage type Covered libertarian ID Effective Begin Date Effective End Date [facility] Insurance [id number] Un known Family history Mother Diagnosis Age At Onset Osteoporosis Unknown Arthritis Unknown Father Diagnosis Age At Onset Cancer Unknown Alcoholism Unknown Social History Social History Element Codes Description Effective Dates Marital status Unknown M james clinton 10/29/2016 Number of children Unknown 1 10/29/2016 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 10/29/[address]: 687877774 Never smoker 10/29/2016 Alcohol history Unknown occasionally drinks alcohol 10/29/2016 Allergies, Adverse Reactions, Alerts Substance Reaction Codes Entered Date Inactivated Date Status AUGMENTIN RxNorm: 461238 10/29/2016 No Inactive Date Active Past Medical History Illness Codes Condition Status Onset Date Resolved Date Gastro-esophageal re flux disease without esophagitis ICD-9: [...] Condition Codes Effectiv e Dates Condition Status Gastro-esophageal re flux disease without esophagitis ICD-9: [...] Codes Instruc tions Start Date Stop Date Fill Instructions vit #113-ir [id number] oral RxNorm: oral No Start Date Active omeprazole 20 mg cap megan,delayed release RxNorm: 300187 1 Capsule(s) PO daily No Start Date 05/09/2017 Inactive metformin 500 mg tablet RxNorm: 075501 1 Tablet(s) PO BID No Start Date 05/09/2017 Inactive Medication Administered No Medication Administered data Immunizations No Immunization data Assessments Condition Codes Effectiv e Dates Right [...] Code Item Item Code Result Date %Hba1C Rmc685 % HbA1c 24106-5 5.9 % 10/19/2018 %Hba1C Dgs048 Gluc Ave 123 mg/dL 10/19/2018 Comp Metabolic Amm053 NA 140 mEq/L 10/18/2018 Comp Metabolic Lvj403 K 4.3 mEq/L 10/18/2018 Comp Metabolic Ctv582 CL 105 mEq/L 10/18/2018 Comp Metabolic Fhv815 CO2 29.0 mEq/L 10/18/2018 Comp Metabolic Hxr982 AN ION GAP 10 10/18/2018 Comp Metabolic Ags189 GL UCOSE 89 mg/dL 10/18/2018 Comp Metabolic Eoo990 Cr eat 0.9 mg/dL 10/18/2018 Comp Metabolic Rpt199 eG FR 78 ml/min/1.73m2 10/18 Comp Metabolic Lyr187 BUN 13 mg/dL 10/18/2018 Comp Metabolic Drn218 B/ C Ratio 14.6 Ratio 10/18/2018 Comp Metabolic Xto474 CA LCIUM 9.2 mg/dL 10/18/2018 Comp Metabolic Ytm109 AL K PHOS 64 U/L 10/18/2018 Comp Metabolic Tbo483 T(SGOT) 15 U/L 10/18/2018 Comp Metabolic Zjn929 AL T(SGPT) 18 U/L 10/18/2018 Comp Metabolic Cvr481 BI LI T 0.2 mg/dL 10/18/2018 Comp Metabolic Yvq936 AL BUMIN 4.2 g/dL 10/18/2018 Comp Metabolic Fjp369 TP RO 6.6 g/dL 10/18/2018 Comp Metabolic Nik001 GL OB 2.4 g/dL 10/18/2018 Comp Metabolic Phn625 A/ G Ratio 1.7 Ratio 10/18/2018 Comp Metabolic Vut152 Os mo 279 mOsmo 10/18/2018 Tsh Ord6 [...] 26.0 pg 10/18/2018 Cbc With Differential Ord2 Calloway% 12.4 % 10/18/2018 Cbc With Differential Ord2 [...] 1.56 K/ul 10/18/2018 Cbc With Differential Ord2 Calloway ABS# 0.7 K/ul 10/18/2018 Cbc With Differential Ord2 Eos ABS# 0.1 K/ul 10/18/2018 Cbc With Differential Ord2 Baso ABS# 0.0 K/ul 10/18/2018 Lipid Ord30 CHOL 171 mg/dL 10/18/2018 Lipid Ord30 HDL 70.0 mg/dl 10/18/2018 Lipid Ord30 TRIG 62 mg/dL 10/18/2018 Lipid Ord30 LDL 89 mg/dL 10/18/2018 Lipid Ord30 C/HDL 2.4 Ratio 10/18/2018 Comp Metabolic Sas658 NA 137 mEq/L 05/10/2017 Comp Metabolic Qkb935 K 4.0 mEq/L 05/10/2017 Comp Metabolic Ooo429 CL 103 mEq/L 05/10/2017 Comp Metabolic Zgg703 CO2 26.0 mEq/L 05/10/2017 Comp Metabolic Prc701 AN ION GAP 12 05/10/2017 Comp Metabolic Rer614 GL UCOSE 92 mg/dL 05/10/2017 Comp Metabolic Ven022 Cr eat 0.9 mg/dL 05/10/2017 Comp Metabolic Tzo021 eG FR 82 ml/min/1.73m2 05/10 Comp Metabolic Nqd277 BUN 19 mg/dL 05/10/2017 Comp Metabolic Gtz745 B/ C Ratio 22.1 Ratio 05/10/2017 Comp Metabolic Rgw259 CA LCIUM 9.2 mg/dL 05/10/2017 Comp Metabolic Iyd660 AL K PHOS 80 U/L 05/10/2017 Comp Metabolic Ebd211 T(SGOT) 19 U/L 05/10/2017 Comp Metabolic Vvu815 AL T(SGPT) 21 U/L 05/10/2017 Comp Metabolic Ezj871 BI LI T 0.2 mg/dL 05/10/2017 Comp Metabolic Djd547 AL BUMIN 4.4 g/dL 05/10/2017 Comp Metabolic Ooh735 TP RO 6.8 g/dL 05/10/2017 Comp Metabolic Sit984 GL OB 2.5 g/dL 05/10/2017 Comp Metabolic Gaz239 A/ G Ratio 1.8 Ratio 05/10/2017 Comp Metabolic Rpo747 Os mo 276 mOsmo 05/10/2017 Cbc With [...] 27.0 pg 05/10/2017 Cbc With Differential Ord2 Calloway% 10.6 % 05/10/2017 Cbc With Differential Ord2 [...] 1.70 K/ul 05/10/2017 Cbc With Differential Ord2 Calloway ABS# 0.7 K/ul 05/10/2017 Cbc With Differential Ord2 Eos ABS# 0.1 K/ul 05/10/2017 Cbc With Differential Ord2 Baso ABS# 0.0 K/ul 05/10/2017 Lipid Ord30 CHOL 219 mg/dL 05/10/2017 Lipid Ord30 HDL 78.0 mg/dl 05/10/2017 Lipid Ord30 TRIG 61 mg/dL 05/10/2017 Lipid Ord30 LDL 129 mg/dL 05/10/2017 Lipid Ord30 C/HDL 2.8 Ratio 05/10/2017 Tsh Ord6 TSH (3rd IS) 2.17 uIU/mL 05/10/2017 %Hba1C Nma866 % HbA1c 43031-5 5.8 % 05/10/2017 %Hba1C Bmp829 Gluc Ave 120 mg/dL 05/10/2017 Review of [...] 1: 112/64 Code: 8480-6 BMI: 36.6 Code: 26672-4 Heart Rate 1: 95 bpm Height: 5'4" SpO2: 98% Weight: 213 lbs 05/10/2017 Blood Pressure 1: 126/74 Code: 8480-6 BMI: 36.6 Code: 48838-2 Heart Rate 1: 86 bpm Height: 5'4" SpO2: 97% Weight: 213 lbs 10/29/2016 Blood Pressure 1: 128/70 Code: 8480-6 BMI: 37.2 Code: 14902-8 Heart Rate 1: 80 bpm Height: 5'4" [...] Encounters Encounter Performer Loca tion Codes Date ([id number]) [id number] EST. P ATIENT, LEVEL III Diagnosis: Right upper quadrant pain[ICD10: R10.11] Diagnosis: Impaired fasting glucose[ICD10: R73.01] [facility] CPT-4: 22829 10/18/2018 ([id number]) [id number] EST. P ATIENT, LEVEL III Diagnosis: Pelvic and perineal pain[ICD10: R10.2] Diagnosis: Polycystic ovarian syndrome[ICD10: E28.2] [facility] CPT-4: 98962 05/10/2017 OFFICE VISIT, NEW - LEVEL 4 Diagnosis: Gastro-esophageal reflux disease without esophagitis[ICD10: K21.9] Diagnosis: Polycystic ovarian syndrome[ICD10: E28.2] Diagnosis: Palpitations[ICD10: R00.2] [facility] CPT- 4: 35005 10/29/2016 Plan of Care Planned Activity Notes C odes Status Date Visit Plan: RUQ pain -gallbladder u ltrasound -start PPI daily -low fat diet PCOS-elevated blood sugars -check Hgb A1C with labs today 10/18/2018 Appointment: Cecille Munroe WPtel: [phone] (30 min) Complex 10/18/2018 Patient Education: Patient Medication Summary Completed 10/18/2018 Visit Plan: Left lower pelvia pain- history of PCOS-UA negative-will schedule pelvic ultrasound for further evaluation-patient not interested in control as they want to try for a baby within the next year. Instructed patient we will call her with results of the ultrasound 05/10/2017 Appointment: Cecille Munroe WPtel: [phone] (30 min) Complex 05/10/2017 Patient Education: Patient [...] holter monitor 10/29/2016 [facility]ment: [facility] [phone] [phone] New Patient 10/29/2016 Patient Education: Patient Medication [...]
--- OUTSIDE RECORDS SUMMARY | 2019-08-20 17:39 | XMS REPORT ---
Author Mervin Dennis [facility] eClinicalWorks Address Unknown Phone Unavailable Care Team Providers Care Director Of Sustainability Programs Name Role Phone JAGDISH CROWDER Unavailable Allergies No Known Allergies Problems Problem Type Condition Code Onset Dates Condition Statu s Problem Patient is a currently breast-feeding mother Z39.1 Active Problem Anxiety state, unspecified F41.1 A ctive Problem Gastroesophageal reflux disease, esophag itis presence not specified K21.9 Active Problem Depressive disorder, not elsewhere classified F32.9 Active Assessment Pre-employment examination Z02.1 A ctive Medications No Known Medications Results No Known Results Summary Purpose eClinicalWorks Submission
--- OUTSIDE RECORDS SUMMARY | 2019-08-20 17:39 | XMS REPORT ---
Author Mervin Dennis [facility] eClinicalWorks Address Unknown Phone Unavailable Care Team Providers Care Tests Superintendent Name Role Phone JAGDISH CROWDER CP Unavailable Allergies, Adverse Reactions, Alerts Substance Reaction Event Type Augmentin rash Drug Allergy Problems Problem Type Condition Code Onset Dates Condition Statu s Problem Anemia complicating , third trimester O99.013 Active Assessment , first, third trimester Z34.03 Active Problem , first, third trimester Z34.03 Active Assessment Tachycardia R00.0 Active Assessment 33 weeks gestation of Z3A.33 Active Medications Medication Code System Code Instructions Start Date End Date Status Dosage [facility] [address] 28-0.8 MG Orally n ot defined Ferrous Sulfate [facility] [address]-89 325 (65 Fe) MG Orally Once a day 1 tablet Procedures Procedure Coding System Code Date Office Visit, Est Pt., Level 3 CPT-4 29159 J 2015 URINE-NO MICRO CPT-4 07919 Mar 26, 2015 COMPLETE CBC W/AUTO DIFF WBC CPT-4 75813 Mar 26, 2015 VENIPUNCT, ROUTINE* CPT-4 19202 Mar 26, 2015 Vital Signs Date/Time: Mar 26, 2015 Temperature 98.5 F Weight 220.5 lbs Height 64 in BMI 37.849 Index Blood Pressure Diastolic 82 mmHg Blood Pressure Systolic 124 mmHg Cardiac Monitoring Heart Rate 84 bpm Results No Known Results Summary Purpose eClinicalWorks Submission
--- OUTSIDE RECORDS SUMMARY | 2019-08-20 17:39 | XMS REPORT ---
Author Author Mervin CROWDER Organization [facility] Address [address] [place] [address] Care Team Providers Care Model Builder Name Role Phone LAKESHADENEEN WEAVERHANY Unavailable PROBLEMS Type Condition ICD9-CM Code BER62-DO Code Onset Dates Condition S tatus SNOMED Code Problem Gastroesophageal reflux disease, esophagitis pre sence not specified K21.9 Active 761543526 Problem Patient is a currently breast-feeding mother Z39.1 Active 115580494 Assessment Chest heaviness R07.89 Oct, Active 38585798 Assessment Cervical lymphadenopathy R59.0 Oct, A ctive 655518319 Problem Anxiety state, unspecified F41.1 Act armando 914646105 Problem Depressive disorder, not elsewhere classified F32. 9 Active 38090946 ALLERGIES Substance Reaction Event Type Date Status Augmentin rash Drug Allergy Oct, Active SOCIAL HISTORY No smoking Hx information available PLAN OF CARE VITAL SIGNS Height 64 in 2015-11-07 Weight 196.1 lbs 2015-11-07 BMI 33.66 kg/m2 2015-11-07 Blood pressure systolic 126 mmHg 2015-11-07 Blood pressure diastolic 70 mmHg 2015-11-07 MEDICATIONS Medication Instructions Dosage Frequency Start Date End Date Duration S tatus Probiotic - Active Prozac 20 MG Orally Once a day 1 capsule in the morning 24h Active Vitamin B Complex - Acti ve Omeprazole 20 MG Orally Once a day 2 capsules 24h Active RESULTS Name Result Date Reference Range Xray : Chest (IN HOUSE) 2015-11-07 Ultrasound : Soft Tissue (specify location) 2015 PROCEDURES Procedure Date Ordered Related Diagnosis Body Site CHEST X-RAY Nov 07, 2015 Office Visit, Est Pt., Level 3 Nov 07, 2015 IMMUNIZATIONS No Known Immunizations
--- OUTSIDE RECORDS SUMMARY | 2019-08-20 17:39 | XMS REPORT ---
Author Mervin Dennis [facility] eClinicalWorks Address Unknown Phone Unavailable Care Team Providers Care Furniture Mechanic Name Role Phone JAGDISH CROWDER Unavailable Allergies No Known Allergies Problems Problem Type Condition Code Onset Dates Condition Statu s Problem Patient is a currently breast-feeding mother Z39.1 Active Problem Anxiety state, unspecified F41.1 A ctive Problem Gastroesophageal reflux disease, esophag itis presence not specified K21.9 Active Assessment Screening for tuberculosis Z11.1 A ctive Problem Depressive disorder, not elsewhere classified F32.9 Active Assessment Visit for TB skin test Z11.1 Activ e Medications No Known Medications Procedures Procedure Coding System Code Date TB INTRADERMAL TEST CPT-4 92194 Dec 31, 2015 Results No Known Results Summary Purpose eClinicalWorks Submission
--- OUTSIDE RECORDS SUMMARY | 2019-08-20 17:39 | XMS REPORT ---
Author Author Mervin CROWDER Organization [facility] Address [address] [place] [address] Care Team Providers Care Sales Associate Key Holder Name Role Phone JAGDISH CROWDER Unavailable PROBLEMS Type Condition ICD9-CM Code SBF43-MD Code Onset Dates Condition S tatus SNOMED Code Problem Gastroesophageal reflux disease, esophagitis pre sence not specified K21.9 Active 099444619 Problem Patient is a currently breast-feeding mother Z39.1 Active 667924452 Problem Depressive disorder, not elsewhere classified F32. 9 Active 14097471 Problem Anxiety state, unspecified F41.1 Act armando [id number] ALLERGIES No Information SOCIAL HISTORY Never Assessed PLAN OF CARE VITAL SIGNS MEDICATIONS Medication Instructions Dosage Frequency Start Date End Date Duration S tatus Fluoxetine HCl 20 mg Orally Once a day 1 tablet 24h 30 days Active RESULTS No Results PROCEDURES No Known procedures IMMUNIZATIONS No Known Immunizations MEDICAL (GENERAL) HISTORY Type Description Date Medical History PCOS Medical History Anemia complicating , third tri mester Medical History anemia (resolved 08/01/2015) Surgical History ear tube placement Surgical History [place] teeth extraction Hospitalization History child
--- OUTSIDE RECORDS SUMMARY | 2019-08-20 17:39 | XMS REPORT | CCD ---
Author Author Mervin Munroe Organization Lina Berkowitz MD, [facility] Address [address] [place] [address] Phone Care Team Providers Care Heel Cutter Name Role Phone PP Unavailable CCM Unavailable Summary Purpose Interface Exchange Insurance Providers Payer name Policy type / Coverage type Covered constitution party ID Effective Begin Date Effective End Date [facility] Insurance [id number] Un known Family history Mother Diagnosis Age At Onset Osteoporosis Unknown Arthritis Unknown Father Diagnosis Age At Onset Cancer Unknown Alcoholism Unknown Social History Social History Element Codes Description Effective Dates Marital status Unknown M james clinton 10/29/2016 Number of children Unknown 1 10/29/2016 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] Observation Code Item Item Code Result Date Comp Metabolic Shc629 NA 137 mEq/L 05/10/2017 Comp Metabolic Iiv984 K 4.0 mEq/L 05/10/2017 Comp Metabolic Bzl717 CL 103 mEq/L 05/10/2017 Comp Metabolic Zwk883 CO2 26.0 mEq/L 05/10/2017 Comp Metabolic Fpc155 AN ION GAP 12 05/10/2017 Comp Metabolic Cwu644 GL UCOSE 92 mg/dL 05/10/2017 Comp Metabolic Tgc514 Cr eat 0.9 mg/dL 05/10/2017 Comp Metabolic Ffa139 eG FR 82 ml/min/1.73m2 05/10 Comp Metabolic Glo271 BUN 19 mg/dL 05/10/2017 Comp Metabolic Ngc082 B/ C Ratio 22.1 Ratio 05/10/2017 Comp Metabolic Lew087 CA LCIUM 9.2 mg/dL 05/10/2017 Comp Metabolic Qvg533 AL K PHOS 80 U/L 05/10/2017 Comp Metabolic Nde715 T(SGOT) 19 U/L 05/10/2017 Comp Metabolic Ltn640 AL T(SGPT) 21 U/L 05/10/2017 Comp Metabolic Ojv396 BI LI T 0.2 mg/dL 05/10/2017 Comp Metabolic Gxg180 AL BUMIN 4.4 g/dL 05/10/2017 Comp Metabolic Vwo358 TP RO 6.8 g/dL 05/10/2017 Comp Metabolic Dcg382 GL OB 2.5 g/dL 05/10/2017 Comp Metabolic Yop417 A/ G Ratio 1.8 Ratio 05/10/2017 Comp Metabolic Crn032 Os mo 276 mOsmo 05/10/2017 Cbc With [...] 27.0 pg 05/10/2017 Cbc With Differential Ord2 Marshall% 10.6 % 05/10/2017 Cbc With Differential Ord2 [...] 1.70 K/ul 05/10/2017 Cbc With Differential Ord2 Marshall ABS# 0.7 K/ul 05/10/2017 Cbc With Differential Ord2 Eos ABS# 0.1 K/ul 05/10/2017 Cbc With Differential Ord2 Baso ABS# 0.0 K/ul 05/10/2017 Lipid Ord30 CHOL 219 mg/dL 05/10/2017 Lipid Ord30 HDL 78.0 mg/dl 05/10/2017 Lipid Ord30 TRIG 61 mg/dL 05/10/2017 Lipid Ord30 LDL 129 mg/dL 05/10/2017 Lipid Ord30 C/HDL 2.8 Ratio 05/10/2017 Tsh Ord6 TSH (3rd IS) 2.17 uIU/mL 05/10/2017 %Hba1C Pll838 % HbA1c 35176-0 5.8 % 05/10/2017 %Hba1C Ohh841 Gluc Ave 120 mg/dL 05/10/2017 Review of [...] 1: 112/64 Code: 8480-6 BMI: 36.6 Code: 22952-0 Heart Rate 1: 95 bpm Height: 5'4" SpO2: 98% Weight: 213 lbs 05/10/2017 Blood Pressure 1: 126/74 Code: 8480-6 BMI: 36.6 Code: 78133-9 Heart Rate 1: 86 bpm Height: 5'4" SpO2: 97% Weight: 213 lbs 10/29/2016 Blood Pressure 1: 128/70 Code: 8480-6 BMI: 37.2 Code: 99038-6 Heart Rate 1: 80 bpm Height: 5'4" [...] Encounters Encounter Performer Loca tion Codes Date ([id number]) [id number] EST. P ATIENT, LEVEL III Diagnosis: Right upper quadrant pain[ICD10: R10.11] Diagnosis: Impaired fasting glucose[ICD10: R73.01] Cecille Berkowitz MD, [facility] CPT-4: 06055 10/18/2018 ([id number]) [id number] EST. P ATIENT, LEVEL III Diagnosis: Pelvic and perineal pain[ICD10: R10.2] Diagnosis: Polycystic ovarian syndrome[ICD10: E28.2] Cecille Berokwitz MD, [facility] CPT-4: 42175 05/10/2017 OFFICE VISIT, NEW - LEVEL 4 Diagnosis: Gastro-esophageal reflux disease without esophagitis[ICD10: K21.9] Diagnosis: Polycystic ovarian syndrome[ICD10: E28.2] Diagnosis: Palpitations[ICD10: R00.2] Cecille Berkowitz MD, [facility] CPT- 4: 08391 10/29/2016 Plan of Care Planned Activity Notes C odes Status Date Visit Plan: RUQ pain -gallbladder u ltrasound -start PPI daily -low fat diet PCOS-elevated blood sugars -check Hgb A1C with labs today 10/18/2018 Patient Education: Patient Medication Summary Completed 10/18/2018 Care Plan: Comp Metabolic Pending 10/18/2018 Care Plan: Cbc With Differential Pending 10/18/2018 Care Plan: %Hba1C LOIN C : 24424-8 Pending 10/18/2018 Care Plan: Lipid Pending 10/18/2018 Care Plan: Tsh Pending 10/18/2018 Visit Plan: Left lower pelvia pain- history of PCOS-UA negative-will schedule pelvic ultrasound for further evaluation-patient not interested in control as they want to try for a baby within the next year. Instructed patient we will call her with results of the ultrasound 05/10/2017 Appointment: Cecille Munroe WPtel: [address] [place], [place] [phone] [place] (30 min) Complex 05/10/2017 Patient Education: [...] monitor 10/29/2016 App[facility]ment: [facility]el[facility] [phone] [phone] [place] New Patient 10/29/2016 Patient Education: Patient [...]
--- OUTSIDE RECORDS SUMMARY | 2019-08-20 17:39 | XMS REPORT ---
Author Mervin Dennis Organization eClinicalWorks Address Unknown Phone Unavailable Care Team Providers Care Final Inspector Movement Assembly Name Role Phone JAGDISH CROWDER CP Unavailable Allergies, Adverse Reactions, Alerts Substance Reaction Event Type Augmentin rash Drug Allergy Problems Problem Type Condition Code Onset Dates Condition Statu s Problem Depressive disorder, not elsewhere classified F32.9 Active Problem anemia O90.81 Active Problem Anxiety state, unspecified F41.1 A ctive Assessment Neck fullness R22.1 Active Assessment Anxiety state, unspecified F41.1 A ctive Assessment Left upper quadrant pain R10.12 Act armando Medications Medication Code System Code Instructions Start Date End Date Status Dosage Prozac [facility] [address]-76 20 MG Orally Once a day 1 capsule in the morning Omeprazole [facility] [address]-82 20 MG Orally Once a day 2 capsules Vitamin B Complex [facility] [address] - Orally not defined Procedures Procedure Coding System Code Date Office Visit, Est Pt., Level 3 CPT-4 86008 J [facility] 2015 Vital Signs Date/Time: September 12, 2015 Cardiac Monitoring Heart Rate 78 bpm Weight 193.6 lbs Height 64 in Blood Pressure Diastolic 77 mmHg Blood Pressure Systolic 123 mmHg Results No Known Results Summary Purpose eClinicalWorks Submission
--- OUTSIDE RECORDS SUMMARY | 2019-08-20 17:40 | XMS REPORT | Continuity of Care Document ---
Demographics Preferred Language Unknown Marital Status Unknown Scientology Affiliation Unknown Race Unknown Ethnic Group Unknown Author Organization Unknown Address Unknown Phone Unavailable Allergies Active Description Code Type Severity Reaction Onset Reported/Identified Relationship to Patient Clinical Status Yes NO KNOWN DRUG ALLERGIES UNKNOWN NO KNOWN DRUG ALLERG Yes amoxicillin [id number] Drug Aller gy Mild rash 05/08/2015 Yes clavulanic acid [id number] D rug Allergy Mild rash 05/08/2015 Medications Medication Packaging Start Date St op Date Route Dosage Sig HYDROCODONE/APAP 5MG/325MG T AB 5 MG/325MG (RAMON-TAB 5/325) TAB 08/13/2017 08/13/2017 ONCE&2237 KETOROLAC VIAL INJ 60 MG/2CC (TORADOL VIAL ) MG 08/13/2017 08/13/2017 ONCE&2337 Problems Date Dx Coded Attending Type Code Diagnosis Diagnosed By 05/04/2015 CANDACE SALAS DO Ot O47.1 FALSE LABOR AT OR AFTER 37 COMPLETED WEE 05/04/2015 CANDACE SALAS DO Ot Z3A.38 38 WEEKS GESTATION OF 05/09/2015 JAGDISH CROWDER MD Ot O36.63X0 05/09/2015 JAGDISH CROWDER MD Ot O36.63X0 05/09/2015 JAGDISH CROWDER MD, Ot O36.63X0 05/10/2015 JAGDISH CROWDER MD Ot D62 ACUTE POSTHEMORRHAGIC ANEMIA 05/10/2015 JAGDISH CROWDER MD, Ot D72.829 ELEVATED WHITE BLOOD CELL COUNT, UNSPECI 05/10/2015 JAGDISH CROWDER MD Ot O41.03X0 OLIGOHYDRAMNIOS, THIRD TRIMESTER, NOT AP 05/10/2015 JAGDISH CROWDER MD Ot O70 .1 SECOND DEGREE PERINEAL LACERATION DURING 05/10/2015 JAGDISH CROWDER MD Ot O75 .2 PYREXIA DURING LABOR, NOT ELSEWHERE CLAS 05/10/2015 JAGDISH CROWDER MD, Ot O90.81 ANEMIA OF THE PUERPERIUM 05/10/2015 JAGDISH CROWDER MD Ot O99.113 OTH DIS OF BLD/BLD-FORM ORG/IMMUN MECHNS 05/10/2015 JAGDISH CROWDER MD Ot Z37 .0 SINGLE LIVE 05/10/2015 JAGDISH CROWDER MD, Ot Z3A.39 39 WEEKS GESTATION OF 05/11/2015 NARA SOARES, RONALD Smith Ot O99. 53 DISEASES OF THE RESP SYS COMPLICATING TH 05/11/2015 NARA SOARES, RONALD Smith Ot R06. 02 SHORTNESS OF BREATH 05/13/2015 RONALD BAINS MD Ot O99. 53 05/13/2015 RONALD BAINS MD Ot R06. 02 05/14/2015 SALAS DO, CANDACE K Ot O47.1 05/14/2015 SALAS DO, CANDACE K Ot Z3A.38 08/01/2015 PETER SOARES, REJI Mcintosh Ot R19.7 DIARRHEA, UNSPECIFIED 08/01/2015 PETER SOARES, REJI Mcintosh Ot R20.2 PARESTHESIA OF SKIN 08/01/2015 PETER SOARES, REJI Mcintosh Ot R42 DIZZINESS AND GIDDINESS 08/02/2015 REJI GREEN MD Ot R19.7 DIARRHEA, UNSPECIFIED 08/02/2015 REJI GREEN MD Ot R20.2 PARESTHESIA OF SKIN 08/02/2015 REJI GREEN MD Ot R42 DIZZINESS AND GIDDINESS 08/09/2015 THA REID MD Ot R10.13 EPIGASTRIC PAIN 08/09/2015 THA REID MD Ot R11.0 NAUSEA 08/12/2015 THA REID MD Ot R10.13 EPIGASTRIC PAIN 08/12/2015 THA REID MD Ot R11.0 NAUSEA 09/06/2015 JAGDISH CROWDER MD Ot O36.63X0 MATERNAL CARE FOR EXCESS GROWTH, T 09/06/2015 PETER SOARES, REJI Mcintosh Ot M79.1 MYALGIA 09/06/2015 REJI GREEN MD Ot R10.13 EPIGASTRIC PAIN 09/09/2015 REJI GREEN MD Ot M79.1 MYALGIA 09/09/2015 PETER SOARES, REJI T Ot R10.13 EPIGASTRIC PAIN 11/12/2015 JAGDISH CROWDER MD Ot O36.63X0 MATERNAL CARE FOR EXCESS GROWTH, T 11/13/2015 JAGDISH CROWDER MD Ot R59 .0 LOCALIZED ENLARGED LYMPH NODES 11/18/2015 JAGDISH CROWDER MD Ot R59 .0 LOCALIZED ENLARGED LYMPH NODES 06/03/2016 JAGDISH CROWDER MD Ot O36.63X0 MATERNAL CARE FOR EXCESS GROWTH, T 06/03/2016 JAGDISH CROWDER MD Ot R59 .0 LOCALIZED ENLARGED LYMPH NODES 06/03/2016 JAGDISH CROWDER MD Ot O36.63X0 MATERNAL CARE FOR EXCESS GROWTH, T 06/04/2016 JAGDISH CROWDER MD Ot O36.63X0 MATERNAL CARE FOR EXCESS GROWTH, T 03/31/2017 UNLISTED, UNLISTED A V70. 5 HEALTH EXAMINATION OF DEFINED SUBPOPULATIONS 03/31/2017 UNLISTED, UNLISTED A Z02. 1 ENCOUNTER FOR PRE-EMPLOYMENT EXAMINATION 05/12/2017 JAGDISH CROWDER MD Ot O36.63X0 MATERNAL CARE FOR EXCESS GROWTH, T 05/12/2017 JAGDISH CROWDER MD Ot R59 .0 LOCALIZED ENLARGED LYMPH NODES 05/14/2017 CECILLE MUNROE ENGINE ASSEMBLY SUPERVISOR Ot E28.2 POLYCYSTIC OVARIAN SYNDROME 05/14/2017 CECILLE MUNROE ENGINE ASSEMBLY SUPERVISOR Ot R93.8 ABNORMAL FINDINGS ON DIAGNOSTIC IMAGING 05/19/2017 CECILLE MUNROE ENGINE ASSEMBLY SUPERVISOR Ot E28.2 POLYCYSTIC OVARIAN SYNDROME 05/19/2017 CECILLE MUNROE ENGINE ASSEMBLY SUPERVISOR Ot R93.8 ABNORMAL FINDINGS ON DIAGNOSTIC IMAGING 05/26/2017 CECILLE MUNROE ENGINE ASSEMBLY SUPERVISOR Ot E28.2 POLYCYSTIC OVARIAN SYNDROME 05/26/2017 CECILLE MUNROE ENGINE ASSEMBLY SUPERVISOR Ot R93.8 ABNORMAL FINDINGS ON DIAGNOSTIC IMAGING 08/13/2017 Carlos Galloway 924.11 CONTUSION OF KNEE 08/13/2017 Carlos Galloway S80.01XA CONTUSION OF RIGHT KNEE, INITIAL ENCOUNTER 05/27/2018 JAGDISH CROWDER MD Ot O36.63X0 MATERNAL CARE FOR EXCESS GROWTH, T 05/27/2018 JAGDISH CROWDER MD Ot R59 .0 LOCALIZED ENLARGED LYMPH NODES 05/27/2018 CECILLE MUNROE Ot E28.2 POLYCYSTIC OVARIAN SYNDROME 05/27/2018 CECILLE MUNROE Ot R93.8 ABNORMAL FINDINGS ON DIAGNOSTIC IMAGING 05/27/2018 JACOB COSME PEI S Ot Z36.89 ENCOUNTER FOR OTHER SPECIFIED 05/27/2018 JACOB COSME EPI S Ot Z3A.20 20 WEEKS GESTATION OF 05/27/2018 JAGDISH CROWDER MD Ot O36.63X0 MATERNAL CARE FOR EXCESS GROWTH, T 05/27/2018 JAGDISH CROWDER MD Ot R59 .0 LOCALIZED ENLARGED LYMPH NODES 05/27/2018 CECILLE MUNROE Ot E28.2 POLYCYSTIC OVARIAN SYNDROME 05/27/2018 CECILLE MUNROE Ot R93.8 ABNORMAL FINDINGS ON DIAGNOSTIC IMAGING 05/27/2018 JACOB COSME EPI S Ot Z36.89 ENCOUNTER FOR OTHER SPECIFIED 05/27/2018 JACOB COSME EPI S Ot Z3A.20 20 WEEKS GESTATION OF 05/27/2018 EPI JAMES DO S Ot D6 2 ACUTE POSTHEMORRHAGIC ANEMIA 05/27/2018 JACOB COSME EPI S Ot O70.0 FIRST DEGREE PERINEAL LACERATION DURING 05/27/2018 JACOB COSME EPI S Ot O90.81 ANEMIA OF THE PUERPERIUM 05/27/2018 JACOB COSME EPI S Ot 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 05/27/2018 JACOB COSME EPI S Ot Z37.0 SINGLE LIVE 05/27/2018 JACOB COSME EPI S Ot Z3A.39 39 WEEKS GESTATION OF 11/02/2018 CECILLE MUNROEP Ot R10.11 RIGHT UPPER QUADRANT PAIN 11/24/2018 CECILLE MUNROEP Ot R10.11 RIGHT UPPER QUADRANT PAIN 06/23/2019 W F41.1 Gene ralized anxiety disorder Cecille Munroe 06/27/2019 W F41.1 Gene ralized anxiety disorder Cecille Munroe Procedures Code Description Performed By Per amy On [id number] RE PAIR FEMALE PERINEUM, EXTERNAL APPROAC 05/08/2015 [id number] DE LIVERY OF PRODUCTS OF CONCEPTION, EXTE 05/08/2015 [id number] IN TRODUCTION OF OTH HORMONE INTO PERIPH 05/08/2015 1WT0UMZ RE PAIR PERINEUM SKIN, EXTERNAL APPROACH 05/26/2018 [id number] DI VISION OF FEMALE PERINEUM, EXTERNAL AP 05/26/2018 73U8VON DE LIVERY OF PRODUCTS OF CONCEPTION, EXTE 05/26/2018 Results Test Result Range TSH+Free T4 - 11/22/15 16:24 TSH 1.370 uIU/mL 0.450-4.500 T4,Free(Direct) 0.94 ng/dL 0.82-1.77 Measles/Mumps/Rubella Immunity - 8 11:09 Rubella Antibodies, IgG 6.81 index Immun e >0.99 Rubeola Ab, IgG 231.0 AU/mL Immune >29.9 Mumps Abs, IgG >300.0 AU/mL Immune >10.9 Hep B Surface Ab - 03/31/17 11:09 Hep B Surface Ab, Qual Reactive Varicella-Zoster V Ab, IgG - 03/31/17 11 :09 Varicella Zoster IgG 1896 index Immune > 165 Drug Screen + ETOH - 03/31/17 11:09 Congressional Assistant Flori Rojelio Donor ID By Employer Representitive Ethanol, Urine <10.00 mg/dL 20.00-80.00 Location [facility] Employee Reason For Test Pre-Employment Temperature In Range YES Deg F 90.00-100 .00 Urine Amphetamines NEGATIVE Urine Barbiturates NEGATIVE Urine Benzodiazepines NEGATIVE Urine Cocaine NEGATIVE Urine MDMA NEGATIVE Urine Methadone NEGATIVE Urine Methamphetamines NEGATIVE Urine Opiates NEGATIVE Urine Oxycodone NEGATIVE Urine PCP NEGATIVE Urine THC Metabolite NEGATIVE Varicella-Zoster V Ab, IgG - 03/31/17 11 :09 VARICELLA ZOSTER IGG 1896 INDEX IMMUNE > 165 Test-Urine - 08/13/17 22:37 Preg Test-U Negative Negative Complete urinalysis with reflex to cultu re - 05/26/18 02:35 Urine color determination YELLOW NRG Urine clarity determination SLIGHTLY CLOUDY NRG Urine pH measurement by test strip 6 5-9 Specific gravity of urine by test strip 1.015 1.016-1.022 Urine protein assay by test strip, semi-quantitative NEGATIVE NEGATIVE Urine glucose detection by automated test strip NE GATIVE NEGATIVE Erythrocytes detection in urine sediment by light micr oscopy 1+ NEGATIVE Urine ketones detection by automated test strip 4+ NEGATIVE Urine nitrite detection by test strip NEGATIVE NEGATIVE Urine total bilirubin detection by test strip NEGA TIVE NEGATIVE Urine urobilinogen measurement by automated test strip (mass/volume) NORMAL NORMAL Urine leukocyte esterase detection by dipstick NEG ATIVE NEGATIVE Automated urine sediment erythrocyte cou nt by microscopy (number/high power field) RARE NRG Automated urine sediment leukocyte count by microscopy (number/high power field) RARE NRG Bacteria detection in urine sediment by light microsco py TRACE NRG Squamous epithelial cells detection in u rine sediment by light microscopy 10-25 NRG Crystals detection in urine sediment by light microsco py NONE NRG Casts detection in urine sediment by light microscopy NONE NRG Mucus detection in urine sediment by light microscopy SMALL NRG Complete urinalysis with reflex to culture NO NRG Complete blood count (CBC) with automate d white blood cell (WBC) differential - 05/26/18 02:45 Blood leukocytes automated count (number/volume) 9.5 10*3/uL 4.3-11.0 Blood erythrocytes automated count (number/volume) 3.38 10*6/uL 4.35-5.85 Venous blood hemoglobin measurement (mass/volume) 9.0 g/dL 11.5-16.0 Blood hematocrit (volume fraction) 28 % 35-52 Automated erythrocyte mean corpuscular volume 82 [ foz_us] 80-99 Automated erythrocyte mean corpuscular h emoglobin (mass per erythrocyte) 27 pg 25-34 Automated erythrocyte mean corpuscular h emoglobin concentration measurement (mass/volume) 32 g/dL 32-36 Automated erythrocyte distribution width ratio 15. 2 % 10.0- 14.5 Automated blood platelet count (count/volume) 340 10*3/uL 130-400 Automated blood platelet mean volume measurement 9.8 [foz_us] 7.4-10.4 Automated blood neutrophils/100 leukocytes 68 % 42-75 Automated blood lymphocytes/100 leukocytes 23 % 12-44 Blood monocytes/100 leukocytes 8 % 0-12 Automated blood eosinophils/100 leukocytes 0 % 0-10 Automated blood basophils/100 leukocytes 0 % 0-10 Blood neutrophils automated count (number/volume) 6.5 10*3 1.8-7.8 Blood lymphocytes automated count (number/volume) 2.2 10*3 1.0-4.0 Blood monocytes automated count (number/volume) 0. 7 10*3 0.0-1.0 Automated eosinophil count 0.0 10*3/uL 0 .0-0.3 Automated blood basophil count (count/volume) 0.0 10*3/uL 0.0-0.1 Blood type T Indirect antibody screen pa melly - 05/26/18 02:45 ABO+Rh group AP NRG Transfusion band number [id number] NRG Blood group antibody screen NEGATIVE NR G Complete blood count (CBC) with automate d white blood cell (WBC) differential - 05/27/18 05:50 Blood leukocytes automated count (number/volume) 12.1 10*3/uL 4.3-11.0 Blood erythrocytes automated count (number/volume) 3.09 10*6/uL 4.35-5.85 Venous blood hemoglobin measurement (mass/volume) 8.2 g/dL 11.5-16.0 Blood hematocrit (volume fraction) 26 % 35-52 Automated erythrocyte mean corpuscular volume 84 [ foz_us] 80-99 Automated erythrocyte mean corpuscular h emoglobin (mass per erythrocyte) 27 pg 25-34 Automated erythrocyte mean corpuscular h emoglobin concentration measurement (mass/volume) 32 g/dL 32-36 Automated erythrocyte distribution width ratio 15. 6 % 10.0- 14.5 Automated blood platelet count (count/volume) 263 10*3/uL 130-400 Automated blood platelet mean volume measurement 10.9 [foz_us] 7.4-10.4 Automated blood neutrophils/100 leukocytes 70 % 42-75 Automated blood lymphocytes/100 leukocytes 20 % 12-44 Blood monocytes/100 leukocytes 9 % 0-12 Automated blood eosinophils/100 leukocytes 1 % 0-10 Automated blood basophils/100 leukocytes 0 % 0-10 Blood neutrophils automated count (number/volume) 8.5 10*3 1.8-7.8 Blood lymphocytes automated count (number/volume) 2.4 10*3 1.0-4.0 Blood monocytes automated count (number/volume) 1. 1 10*3 0.0-1.0 Automated eosinophil count 0.1 10*3/uL 0 .0-0.3 Automated blood basophil count (count/volume) 0.0 10*3/uL 0.0-0.1 Encounters ACCT No. Visit Date/Time Discharge Status Pt. Type Provider Facility Loc./Unit Complaint [id number] 04/01/2017 19:10:00 Document Registration [id number] 08/13/2017 22:14:00 08/13/2017 23:50: 00 DIS Outpatient Carlos Galloway [id number] 03/31/2017 11:00:00 03/31/2017 23:59: 00 DIS Outpatient UNLISTED, UNLISTED [id number] 08/13/2017 22:38:41 Document Registration [id number] 11/02/2018 15:31:00 23:59:59 CLS Preadmit HERIBERTO WINTER TRAVELING REPAIR ACCOUNTANT [facility] CARD ABD PAIN [id number] 10/28/2018 07:57:00 23:59:59 CLS Outpatient CECILLE MUNROE ENGINE ASSEMBLY SUPERVISOR [facility] RAD RUQ PAIN [id number] 05/26/2018 02:33:00 17:25:00 DIS Inpatient EPI JAMES DO S [facility] LDRP LABOR [id number] 01/07/2018 10:02:00 018 23:59:59 CLS Outpatient EPI JAMES DO [facility] RAD [id number] 05/13/2017 14:19:00 018 23:59:59 CLS Outpatient CECILLE MUNROEP [facility] RAD PELVIC PAIN [id number] 11/12/2015 10:35:00 016 23:59:59 CLS Outpatient JAGDISH CROWDER MD [facility] RAD CERVICAL LYMPHADENOPATH Y [id number] 09/06/2015 12:38:00 15:50:00 DIS Emergency REJI GREEN MD [facility] ER ABD PAIN [id number] 08/09/2015 20:17:00 22:48:00 DIS Emergency THA REID MD [facility] ER RT SIDE ABD GERRI N/NO APPETITE [id number] 08/01/2015 19:36:00 22:15:00 DIS Emergency PETER SOARES, REJI Mcintosh [facility] ER DIFFICULTY SPEA BEVERLY, CYNTHIA LEG WEAKNESS [id number] 05/11/2015 07:10:00 016 09:24:00 DIS Emergency NARA SOARES, RONALD S [facility] ER CHEST PAIN [id number] 05/08/2015 07:26:00 016 13:30:00 DIS Inpatient JAGDISH CROWDER MD [facility] LDRP INDUCTION [id number] 05/04/2015 19:03:00 016 23:30:00 DIS Outpatient CANDACE SALAS DO [facility] WSo CONTRACTIONS [id number] 05/03/2015 14:04:00 23:59:59 CLS Outpatient JAGDISH CROWDER MD [facility] RAD LARGE FOR DATING,FETUS AFFECTING 3 TRI [id number] 11/23/2015 08:35:00 Document Registration [id number] 10/29/2016 13:01:29 10/29/2016 23:59:5 9 CLS Outpatient [id number] 11/29/2018 10:20:00 11/29/2018 23:59: 59 CLS [facility] [place]
--- NOTE | 2019-08-20 18:00 | Diagnostic Imaging Report ---
INDICATION: Injury, tripped on dog. EXAMINATION: Left ankle from 08/20/2019. FINDINGS: 3 views of the ankle. Comminuted distal fibular fracture is noted. Alignment is fairly well maintained. There may be mild widening of the medial ankle mortise, but remaining osseous structures appear to be intact. No dislocations. IMPRESSION: 1. Comminuted distal fibular fracture with questionable widening at the ankle mortise. Dictated by: Dictated on workstation # [id number]
--- NOTE | 2019-08-20 18:01 | Diagnostic Imaging Report ---
INDICATION: Trauma, tripped dog. EXAMINATION: Left tibia and fibula dated 08/20/2019. FINDINGS: 4 views of the tibia and fibula. Comminuted distal fibular fracture is noted. The tibia is intact. Proximal tibia and fibula unremarkable. IMPRESSION: 1. Distal fibular fracture. Dictated by: Dictated on workstation # [id number]
[2019-08-20 18:21] VITALS: BP 108/75
== END 2019-08-20 18:23 | disposition home or self-care (01) ==
LOC: EDUNIT# 17:10 → ER 17:11
DX: S82.832A Other fracture of upper and lower end of left fibula, initial encounter for closed fracture (principal); F41.9 Anxiety disorder, unspecified; Z88.0 Allergy status to penicillin; Z88.1 Allergy status to other antibiotic agents; Z80.0 Family history of malignant neoplasm of digestive organs; W18.39XA Other fall on same level, initial encounter
CPT/HCPCS: 29515; 73590; 73610; 84703